=== PATIENT | male | born 1930 | race Caucasian/White ===

== ENCOUNTER 2016-10-19 11:29 | Inpatient (IN) | payer OTHER, MEDICARE ==
[2016-10-19] MEDS ORDERED: DILTIAZEM 25 MG/5 ML VIAL IVP ONE ×5 (11:32→12:27)
--- NOTE | 2016-10-19 11:39 | EDPHY ---
HPI/HX/ROS/PE/MDM Narrative: CHIEF COMPLAINT: Tachycardia, hypotension HPI: The patient is an 87 y/o male arriving emergently via EMS with rapid heart rate, hypotension, and dizziness onset this morning. EMS found him in the lobby of [facility] complaining of dizziness with a heart rate of 190 and BP of 82/40. He reports he had a dose of chemotherapy and prednisone this morning for active prostate cancer. He denies associated chest pain, dyspnea, vomiting, fever, recent illness, or recent trauma. He has no known history of atrial fibrillation. EMS administered 12mg Adenosine in the field without resolution of rhythm. REVIEW OF SYSTEMS: Aside from elements discussed in the HPI, a comprehensive 10-point review of systems was reviewed and is negative. PMH: CAD, CABG, prostate cancer, GERD, hyperlipidemia Prior medical records reviewed including admission for hydronephrosis on . SOCIAL HISTORY: Lives at [facility] PHYSICAL EXAM: General:Patient is alert, sitting up, talking, in no acute distress. BP 70/50, HR 180. ENT:Eyes are normal to inspection. ENT inspection normal. Neck: Normal inspection. Full range of motion. Respiratory:No respiratory distress. Breath sounds normal bilaterally. Cardiovascular: Irregular tachycardic rate and rhythm. Strong peripheral pulses. Normal cap refill. Strong radial pulses. Abdomen:The abdomen is nontender to palpation. There are no peritoneal signs. There are normal bowel sounds. Back: Normal to inspection. No tenderness to palpation. Skin: Normal color. No rash. Warm and dry. Extremities: Normal appearance. Full range of motion. Right arm PICC line in place. Neuro: Oriented x3. Normal motor function. Normal sensory function. ED Course: 1129: Met EMS upon arrival and took report. Patient immediately placed on monitor with defib pads. EKG ordered. Initial HR 180, automatic BP 71/61. He continues to feel weak and dizzy without chest pain, but overall is well- appearing, sitting up, and talking without issue. 1135: 10mg IV Diltazem administered. Rate has slowed to 130 and is clearly irregular. 1136: Manual BP 90/40. The 12 lead EKG was interpreted by myself. Rapid atrial fibrillation rate 170. See hard copy and/or "tracemaster" electronic copy for interpretation. 1138: Rate increased to 160-170. Additional 10mg IV Diltazem administered. Plan for Diltazem drip. Chest x-ray and cardiac labs ordered. 1146: Manual BP is 90/50. 1156: HR 180. Waiting on Diltazem drip to arrive from pharmacy. Additional 10mg IV Diltazem administered. 1245: Patient converted to sinus rhythm rate 65. Repeat EKG ordered. The 12 lead EKG was interpreted by myself. See hard copy and/or "tracemaster" electronic copy for interpretation. 1300: Patient's BP has remained low even while in sinus rhythm. We will discontinue the Diltazem drip at this time. He is still mentating well without new complaints. 1302: Spoke with hospitalist service. Dr. Boyd accepts admission. MDM: This patient presents in rapid atrial fibrillation. His automatic BP is quite low, but he has a strong radial pulse, is sitting up in bed mentating. We gave him a trial of 10mg Diltiazem which resulted in approximately 30-40bpm reduction in HR with corresponding increase in BP. I do not think the patient requires electrical cardioversion at this time - given his PICC line and history of CA, he is at relatively high risk for atrial thrombus, so I would like to avoid emergent cardioversion if possible. We will start patient on Diltiazem gtt and continue to monitor. I personally spent a total of 65 minutes of critical care time in obtaining history, performing a physical exam, bedside monitoring of interventions, collecting and interpreting tests and discussion with consultants but not including time spent performing procedures. This time was exclusive of any involvement by Physician Employee Representative. Organ system(s) at risk include: Cardiovascular. - Data Points Laboratory Results: Laboratory Results 10/19/16 11:48 10/19/16 11:48 10/19/16 10/19/16 11:48 11:48 WBC 14.85 10^3/uL H 10^3/uL (3.80-9.50) RBC 3.24 10^6/uL L 10^6/uL (4.40-6.38) Hgb 10.1 g/dL L g/dL (13.7-17.5) Hct 30.0 % L % (40.0-51.0) MCV 92.6 fL fL (81.5-99.8) MCH 31.2 pg pg (27.9-34.1) MCHC 33.7 g/dL g/dL (32.4-36.7) RDW 16.0 % H % (11.5-15.2) Plt Count 187 10^3/uL 10^3/uL (150-400) MPV 9.3 fL fL (8.7-11.7) Neut % (Auto) Not Reported Lymph % (Auto) Not Reported [place] % (Auto) Not Reported Eos % (Auto) Not Reported Baso % (Auto) Not Reported Nucleat RBC Rel Count 0.0 % % (0.0-0.2) Absolute Neuts (auto) Not Reported Absolute Lymphs (auto) Not Reported Absolute Monos (auto) Not Reported Absolute Eos (auto) Not Reported Absolute Basos (auto) Not Reported Absolute Nucleated RBC 0.00 10^3/uL 10^3/uL (0-0.01) Immature Gran % Not Reported Seg Neutrophils % 84 % % Band Neutrophils % 7 % % Lymphocytes % 8 % % Myelocytes % 1 % % Immature Gran # Not Reported Absolute Seg Neuts 12.47 10^/uL H 10^/uL (1.70-6.50) Absolute Band Neuts 1.04 10^3/uL H 10^3/uL (0.00-0.70) Absolute Lymphocytes 1.19 10^3/uL 10^3/uL (1.00-3.00) Absolute Myelocytes 0.15 10^3/mL H 10^3/mL (0.00-0.00) Platelet Estimate ADEQUATE (ADEQ) Polychromasia 1+ H Acanthocytes (Spur) 1+ H Smear Review By Pending Sodium 132 mEq/L L mEq/L (134-144) Potassium 4.0 mEq/L mEq/L (3.5-5.2) Chloride 103 mEq/L mEq/L (97-110) Carbon Dioxide 22 mEq/l mEq/l (22-31) Anion Gap 7 mEq/L L mEq/L (8-16) BUN 30 mg/dL H mg/dL (7-23) Creatinine 1.5 mg/dL H mg/dL (0.7-1.3) Estimated GFR 44 Glucose 171 mg/dL H mg/dL (70-100) Calcium 7.9 mg/dL L mg/dL (8.5-10.4) Troponin I 0.038 ng/mL H ng/mL (0-0.034) TSH 2.170 uIU/mL uIU/mL (0.465-4.680) Medications Given: Discontinued Medications Diltiazem HCl (Cardizem 25 Mg/5 Ml Vial) 20 mg IVP EDNOW ONE Stop: 10/19/16 11:42 Last Admin: 10/19/16 11:35 Dose: 10 mg Diltiazem HCl (Cardizem 25 Mg/5 Ml Vial) 10 mg IVP EDNOW ONE Stop: 10/19/16 11:42 Last Admin: 10/19/16 11:40 Dose: 10 mg Diltiazem HCl (Cardizem 25 Mg/5 Ml Vial) 10 mg IVP EDNOW ONE Stop: 10/19/16 11:42 Last Admin: 10/19/16 11:46 Dose: Not Given Diltiazem HCl (Cardizem 25 Mg/5 Ml Vial) 5 mg IVP EDNOW ONE Stop: 10/19/16 12:01 Last Admin: 10/19/16 12:27 Dose: Not Given Diltiazem HCl (Cardizem 25 Mg/5 Ml Vial) 10 mg IVP EDNOW ONE Stop: 10/19/16 12:28 Last Admin: 10/19/16 12:05 Dose: 10 mg Diltiazem HCl 125 mg/ Dextrose 125 mls @ 0 mls/hr IV EDNOW ONE; As Directed PRN Reason: Protocol Stop: 10/19/16 11:42 Last Admin: 10/19/16 12:06 Dose: 125 mls Sodium Chloride (Ns) 1,000 mls @ 0 mls/hr IV ONCE ONE PRN Reason: Wide Open Stop: 10/19/16 11:42 Last Admin: 10/19/16 11:44 Dose: 1,000 mls General Initial Vital Signs: Initial Vital Signs Temperature (C) 36.6 C 10/19/16 11:36 Heart Rate 190 H 10/19/16 11:36 Respiratory Rate 20 10/19/16 11:36 Blood Pressure 90/40 L 10/19/16 11:36 O2 Sat (%) 97 10/19/16 11:36 O2 Delivery Mode Room Air O2 (L/minute) 2 Allergies/Adverse Reactions: meperidine HCl [From Demerol] Allergy (Verified 12/02/15 17:36) Home Medications: Medication Instructions Recorded Aspirin [Aspirin 81mg (*)] 81 mg PO DAILY 10/19/16 Chemo Regimen 1 ea .ROUTE AD 10/19/16 Fluticasone Nasal [Flonase Nasal 1 sprays NASAL HS 10/19/16 Panacea (RX)] Omeprazole [Prilosec 20 mg] 20 mg PO DAILY 10/19/16 Rosuvastatin Calcium [Crestor 10mg 10 mg PO DAILY 10/19/16 (RX)] predniSONE 5 mg PO DAILY 10/19/16 Departure - Departure Disposition: [facility] Inpatient Acute Clinical Impression: Rapid atrial fibrillation Hypotension Qualifiers: Hypotension type: other hypotension type Qualified Code(s): I95.89 - Other hypotension Condition: Fair Report Scribed for: Charly [employer] Report Scribed by: Moraima Artis Date of Report: 10/19/16 Time of Report: 11:39 Physician Review and Approval Statement: Portions of this note were transcribed by an ED scribe. I personally performed the history, physical exam, and medical decision making; and confirm the accuracy of the information in the transcribed note.
--- NOTE | 2016-10-19 11:40 | CPEKG ---
Heart Rate: 165 RR Interval: 364 QRSD Interval: 82 QT Interval: 288 QTC Interval: 477 QRS Conway: 62 T Wave [place]: 244 EKG Severity - ABNORMAL ECG - EKG Impression: ATRIAL FIBRILLATION WITH RAPID V-RATE -- New since April 07, 2015 EKG Impression: REPOLARIZATION ABNORMALITY, PROB RATE RELATED EKG Impression: Agree with above Electronically Signed By: Johnson Fischer 22-Oct-2016 18:26:36
[2016-10-19] MEDS ORDERED: DILTIAZEM 125 MG in D5W 125 ML IV ONE (11:41)
[2016-10-19] MEDS ORDERED: NS 1,000 ML IV ONE (11:41)
[2016-10-19 11:56] LABS: ADD DIFF? YES; ADD MORPH? NO; ADD SCAN? NO; ATYPICAL LYMPHOCYTE FLAG 0 (0-99); FRAGMENT RBC FLAG 0 (0-99); HEMOGLOBIN 10.1 g/dL (13.7-17.5); LEFT SHIFT FLG 20 (0-99); LIPEMIA HEMOLYSIS FLAG 80 (0-99); MEAN CELL HEMOGLOBIN 31.2 pg (27.9-34.1); MEAN CELL HEMOGLOBIN CONCENTR. 33.7 g/dL (32.4-36.7); MEAN CELL VOLUME 92.6 fL (81.5-99.8); MEAN PLATELET VOLUME 9.3 fL (8.7-11.7); PLATELET CLUMPS FLAG 0 (0-99); PLATELET COUNT 187 10^3/uL (150-400); RED BLOOD CELL COUNT 3.24 10^6/uL (4.40-6.38)
[2016-10-19] MEDS: DILTIAZEM 25 MG/5 ML VIAL IVP ONE ×2 (12:00→12:27)
[2016-10-19 12:15] LABS: ANION GAP 7 mEq/L (8-16); CALCIUM 7.9 mg/dL (8.5-10.4); CARBON DIOXIDE 22 mEq/l (22-31); CHLORIDE 103 mEq/L (97-110); CREATININE 1.5 mg/dL (0.7-1.3); GLOMERULAR FILTRATION RATE 44; GLUCOSE 171 mg/dL (70-100); SODIUM 132 mEq/L (134-144)
[2016-10-19 12:26] LABS: TROPONIN I 0.038 ng/mL (0-0.034)
[2016-10-19 12:59] LABS: ACANTHOCYTES 1+; PLATELET ESTIMATE ADEQUATE (ADEQ); POLYCHROMASIA 1+
--- NOTE | 2016-10-19 13:40 | PDGENHP ---
History and Physical - Chief Complaint dizziness - History of Present Illness This is an 86-year-old male undergoing chemotherapy for prostate cancer under the care of Dr. Chuck Phelan who took a dose of prednisone this morning before breakfast. Immediately after taking the prednisone he felt disease and started having palpitations. He denies any syncope but felt like he was going to pass out. He denies having any chest pain. Denies any history of any arrhythmias or having episodes like this in the past. He had been getting dexamethasone with his chemotherapy which he gets on Mondays but the dexamethasone was stopped due to dizziness. Per EMS report he was initially found to have a heart rate of 190 beats per minute and a blood pressure of 82/40. He was given 12 mg of adenosine in the field without resolution of his symptoms. in the emergency department he received 210 mg boluses of IV diltiazem. They were going to start a diltiazem drip however this was held after he was noted to have persistent hypotension. History Information - Allergies/Home Medication List Allergies/Adverse Reactions: meperidine HCl [From Demerol] Allergy (Verified 12/02/15 17:36) Home Medications: Aspirin [Aspirin 81mg (*)] 81 mg PO DAILY 10/19/16 [Last Taken Unknown] Chemo Regimen 1 ea .ROUTE AD 10/19/16 [Last Taken 10/14/16] Fluticasone Nasal [Flonase Nasal [place] (RX)] 1 sprays NASAL HS 10/19/16 [Last Taken Unknown] Omeprazole [Prilosec 20 mg] 20 mg PO DAILY 10/19/16 [Last Taken Unknown] Rosuvastatin Calcium [Crestor 10mg (RX)] 10 mg PO DAILY 10/19/16 [Last Taken Unknown] predniSONE 5 mg PO DAILY 10/19/16 [Last Taken Unknown] I have personally reviewed and updated: family history, medical history, social history, surgical history Past Medical History: Prostate cancer - Past Medical History asthma, coronary artery disease - Surgical History Reports: coronary bypass surgery ( 2 vessels done in the ; radical prostatectomy) - Family History Additional family history: for prostate cancer and coronary artery disease - Social History Smoking Status: Never smoked Alcohol Use: Occasionally Drug Use: None Review of Systems ROS: 10pt was reviewed & negative except for what was stated in HPI & below Physical Exam Temp Pulse Resp BP Pulse Ox 36.6 C 88 16 108/48 L 99 03/25/17 11:36 10/19/16 12:57 10/19/16 12:57 10/19/16 12:57 10/19/16 12:57 Constitutional: no apparent distress, appears nourished, not in pain Eyes: PERRL, anicteric sclera, EOMI Ears, Nose, Mouth, Throat: dry mucous membranes Cardiovascular: no murmur, rub, or gallop, irregularly irregular, No JVD, No edema Respiratory: no respiratory distress, no rales or rhonchi, clear to auscultation , No rhonchi Gastrointestinal: normoactive bowel sounds, soft, non-tender abdomen, no palpable masses, No guarding, No rebound Genitourinary: no bladder fullness, no bladder tenderness Skin: warm, normal color, no rashes or abrasions, no fluctuance, no induration, other ( Poor turgor), No mottled Musculoskeletal: full muscle strength, no muscle tenderness, normal joint ROM, no joint effusions Neurologic: AAOx3, CN II-XII Intact, No facial droop Psychiatric: interacting appropriately, not anxious, not encephalopathic, thought process linear Lab Data & Imaging Review 10/19/16 11:48 10/19/16 11:48 WBC 14.85 10^3/uL (3.80-9.50) H 10/19/16 11:48 RBC 3.24 10^6/uL (4.40-6.38) L 10/19/16 11:48 Hgb 10.1 g/dL (13.7-17.5) L 10/19/16 11:48 Hct 30.0 % (40.0-51.0) L 10/19/16 11:48 MCV 92.6 fL (81.5-99.8) 10/19/16 11:48 MCH 31.2 pg (27.9-34.1) 10/19/16 11:48 MCHC 33.7 g/dL (32.4-36.7) 10/19/16 11:48 RDW 16.0 % (11.5-15.2) H 10/19/16 11:48 Plt Count 187 10^3/uL (150-400) 10/19/16 11:48 MPV 9.3 fL (8.7-11.7) 10/19/16 11:48 Neut % (Auto) Not Reported 10/19/16 11:48 Lymph % (Auto) Not Reported 10/19/16 11:48 [place] % (Auto) Not Reported 10/19/16 11:48 Eos % (Auto) Not Reported 10/19/16 11:48 Baso % (Auto) Not Reported 10/19/16 11:48 Nucleat RBC Rel Count 0.0 % (0.0-0.2) 10/19/16 11:48 Absolute Neuts (auto) Not Reported 10/19/16 11:48 Absolute Lymphs (auto) Not Reported 10/19/16 11:48 Absolute Monos (auto) Not Reported 10/19/16 11:48 Absolute Eos (auto) Not Reported 10/19/16 11:48 Absolute Basos (auto) Not Reported 10/19/16 11:48 Absolute Nucleated RBC 0.00 10^3/uL (0-0.01) 10/19/16 11:48 Immature Gran % Not Reported 10/19/16 11:48 Seg Neutrophils % 84 % 10/19/16 11:48 Band Neutrophils % 7 % 10/19/16 11:48 Lymphocytes % 8 % 10/19/16 11:48 Myelocytes % 1 % 10/19/16 11:48 Immature Gran # Not Reported 10/19/16 11:48 Absolute Seg Neuts 12.47 10^/uL (1.70-6.50) H 10/19/16 11:48 Absolute Band Neuts 1.04 10^3/uL (0.00-0.70) H 10/19/16 11:48 Absolute Lymphocytes 1.19 10^3/uL (1.00-3.00) 10/19/16 11:48 Absolute Myelocytes 0.15 10^3/mL (0.00-0.00) H 10/19/16 11:48 Platelet Estimate ADEQUATE (ADEQ) 10/19/16 11:48 Polychromasia 1+ H 10/19/16 11:48 Acanthocytes (Spur) 1+ H 10/19/16 11:48 Sodium 132 mEq/L (134-144) L 10/19/16 11:48 Potassium 4.0 mEq/L (3.5-5.2) 10/19/16 11:48 Chloride 103 mEq/L (97-110) 10/19/16 11:48 Carbon Dioxide 22 mEq/l (22-31) 10/19/16 11:48 Anion Gap 7 mEq/L (8-16) L 10/19/16 11:48 BUN 30 mg/dL (7-23) H 10/19/16 11:48 Creatinine 1.5 mg/dL (0.7-1.3) H 10/19/16 11:48 Estimated GFR 44 10/19/16 11:48 Glucose 171 mg/dL (70-100) H 10/19/16 11:48 Calcium 7.9 mg/dL (8.5-10.4) L 10/19/16 11:48 Troponin I 0.038 ng/mL (0-0.034) H 10/19/16 11:48 TSH 2.170 uIU/mL (0.465-4.680) 10/19/16 11:48 Visualized and Interpreted Chest x-ray results: Yes Chest X-Ray results: no infiltrate, normal Visualized and Interpreted EKG results: Yes EKG Interpretation: Positive for: ST depression ( in the anterior lateral leads) . Negative for: ST elevation Assessment & Plan Assessment: This is an 86-year-old male currently undergoing treatment for prostate cancer presenting with: #Atrial fibrillation with rapid ventricular response possibly attributed to prednisone use # hypotension # indeterminate troponin suspect demand ischemia in the setting of rapid atrial fibrillation # mild hyponatremia possibly due to hypovolemia # stable stage 3 chronic kidney disease with creatinine of 1.5 plan: - Place in observation - IV fluid bolus with normal saline - close blood pressure monitoring - consider resuming diltiazem drip if rate becomes uncontrolled - cycle troponins - echocardiogram to evaluate for cardiac thrombus - therapeutic Lovenox - check TSH - cardiology consultation - I will alert the patient's treating oncologist Dr. Chuck Phelan this patient has been hospitalized
[2016-10-19] MEDS ORDERED: NS 500 ML IV ONE ×2 (13:55→16:40)
[2016-10-19 14:57] LABS: MAGNESIUM 1.8 mg/dL (1.6-2.3)
[2016-10-19] MEDS: ENOXAPARIN 60 MG/0.6 ML SYR SC SCH (16:49)
[2016-10-19] MEDS: FLUTICASONE NASAL 120 SPRAYS/16 GM MDI EACHNARE SCH (22:16)
[2016-10-20] MEDS: ROSUVASTATIN CALCIUM 10 MG TAB PO SCH (08:53)
[2016-10-20] MEDS: PANTOPRAZOLE SODIUM 40 MG TAB PO SCH (08:53)
[2016-10-20] MEDS: ENOXAPARIN 60 MG/0.6 ML SYR SC SCH (08:53)
[2016-10-20] MEDS ORDERED: ASPIRIN 81 MG CHEWABLE TAB PO SCH (09:00)
[2016-10-20] MEDS ORDERED: NON-FORMULARY NEW DRUG (Omeprazole [Prilosec 20 Mg] 20 MG) PO SCH (09:00)
--- NOTE | 2016-10-20 09:30 | SOAPPROG ---
SOAP Progress Note Assessment/Plan: Assessment: 1. Castrate resistant prostate cancer; due for weekly taxotere tomorrow 2. PAF: In NSR. OK to go home from my perspective. He ascribes it to prednisone. OK to stop it from my perspective. 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 He has chronic anemia and fatigue. He came in with PAF. He is going home today. Objective: Vital Signs Temp Pulse Resp BP Pulse Ox 36.4 C 86 18 90/52 L 97 10/20/16 04:26 10/20/16 04:26 10/20/16 04:26 10/20/16 04:26 10/20/16 04:26 10/19/16 10/20/16 10/21/16 05:59 05:59 05:59 Intake Total 2500 Output Total 300 Balance 2200 Looks good Lungs clear CVS reg ICD10 Worksheet Patient Problems: Problems Problem Status Onset Chest pain Active CAD - Coronary arteriosclerosis Active Asthma Active GERD - Gastroesophageal reflux disease Active Rapid atrial fibrillation Acute Hypotension Acute
[2016-10-20] MEDS: AMIODARONE HCL 200 MG TAB PO SCH ×2 (11:58→21:47)
--- NOTE | 2016-10-20 12:04 | HOSPPROG ---
Hospitalist Progress Note Assessment/Plan: 86 y/o male with history of castration resistant prostate cancer on weekly Taxotere chemotherapy followed by Dr. Phelan presenting with #Afib with rvr now with improved rate but with persistent hypotension -repeat fluid bolus today -I discussed the case Gabriele who is recommending Amiodarone, but wishes to withhold anticoagulation for now #indeterminate troponin -outpt stress test #mild hyponatremia (stable) #St III CKD #Prostate CA -oncology consult reviewed. will hold prednisone dispo: will change to inpatient status given persistent hypotension. Plan to send home once at baseline Subjective: no chest pain. no palps. no dizziness Objective: Vital Signs Temp Pulse Resp BP Pulse Ox 36.3 C 93 22 H 93/49 L 92 10/20/16 11:48 10/20/16 11:48 10/20/16 11:48 10/20/16 11:48 10/20/16 11:48 10/19/16 10/20/16 10/21/16 05:59 05:59 05:59 Intake Total 2500 360 Output Total 300 Balance 2200 360 prelim echo results discussed with Dr. Suazo nml EF - Physical Exam Constitutional: no apparent distress, appears nourished, not in pain Cardiovascular: regular rate and rhythym, no murmur, rub, or gallop, No JVD, No edema Respiratory: no respiratory distress, no rales or rhonchi, clear to auscultation Gastrointestinal: normoactive bowel sounds, soft, non-tender abdomen, no palpable masses, No guarding, No rebound ICD10 Worksheet Patient Problems: Problems Problem Status Onset Chest pain Active CAD - Coronary arteriosclerosis Active Asthma Active GERD - Gastroesophageal reflux disease Active Rapid atrial fibrillation Acute Hypotension Acute
--- NOTE | 2016-10-20 12:08 | GCON ---
[f rep st] CONSULTATION CARDIOLOGY HISTORY OF PRESENT ILLNESS: This is an 86-year-old male undergoing chemotherapy for prostate cancer who used to be on dexamethasone; however it was bothering him quite a lot and decided to change it to prednisone. He took prednisone yesterday morning with his breakfast and immediately after taking prednisone, he felt lightheaded and dizzy and started having palpitation without any chest pain, shortness of breath. No syncope. He did feel presyncopal. He mentions that he had arrhythmia like this once before. He came to the hospital with a heart rate of 190 beats per minute, blood pressure of 82/40, was given adenosine in the field and then was given a bolus of IV Cardizem, but no drip was started because of persistent hypotension. Eventually he is converted into sinus rhythm spontaneously. The patient gets chemotherapy for his prostate cancer which is castrate resistant, and he has lymph node metastasis. It is unclear at this point in time, if he is willing to continue with chemotherapy. He has had known coronary artery disease and has had bypass surgery in the past. PAST MEDICAL HISTORY: 1. Coronary artery disease. 2. Prostate cancer castrate resistant. 3. Lymph node metastasis. 4. Syncope in the past related to dehydration. CURRENT HOME MEDICATION: Aspirin, chemo regimen, fluticasone, omeprazole, Crestor, and prednisone. ALLERGIES: meperidine. FAMILY HISTORY: Noncontributory. SOCIAL HISTORY: Non smoker. Occasional alcohol use. No drug abuse. REVIEW OF SYSTEMS: Other than above, negative. PHYSICAL EXAM: VITAL SIGNS: Blood pressure is 108/48, pulse of 88, respiratory rate 16. HEENT: Pupils equal, reacting to light accommodating. Anicteric sclerae. No lymphadenopathy, no thyromegaly. No JVD. CHEST: Good air entry bilaterally equal. No rales, rhonchi, or wheezing. CARDIAC: S1, S2 regular. No S3. No murmur. ABDOMEN: Soft, nontender. No guarding or rigidity. Bowel sounds present. EXTREMITIES: No edema. No rashes noted. PSYCHIATRY: Interacting appropriately, asking appropriate questions. LABORATORY DATA: Hemoglobin 10.1, platelet is 187, creatinine 1.5. IMPRESSION/PLAN: This is an 86-year-old male with prostate cancer status post lymph node metastasis, castrate resistant, hypotension, comes in with atrial fibrillation with rapid ventricular response, ST depression indicative of ischemia with elevated troponin. 1. Atrial fibrillation with rapid ventricular response. Considering how symptomatic the patient was, we need to prevent these episodes and hence I will start him on amiodarone 400 mg p.o. twice daily. The patient then has a CHADS score of 4 and hence, is at risk for stroke; however considering the lymph node metastasis and his dehydration related fall, it may be prudent to hold off on the blood thinners for now considering the risk of stroke. If he continues to have more episodes, we may reconsider it. 2. Increased troponin. We can address this as an outpatient in terms of evaluation of stress test. However considering the metastatic prostate cancer, he may be better off with medical management. 3. Echocardiogram. We will evaluate the patient's ejection fraction. The echo is pending at this point in time. 4. Hypotension. We will encourage increased fluid intake and hold off on any blood pressure lowering agents. Thank you for letting us participate in the patient's care, feel free to call us for questions. /[id number]/MODL MTDD
--- NOTE | 2016-10-20 12:16 | ECHO ---
[id number] + + [address] : : [place] [address] : : [phone] + Adult Echocardiographic Report + -------+ :Name: HENRY WADE SStudy Date: 10/20/2016 08:51 AM BP: 87/54 mmHg : : Hospital Admission Number: [id number] Locati on: 201: :: 1930 Gender: Male Height: 64 in : :Age: 86 yrs Race: WH Weight: 139 lb : :Reason For Study: new afib hypotension : : BSA: 1.7 meter s2 : :History: h/o of cabg : + -------+ MMode/2D Measurements \T\ Calculations IVSd: 1.3 cm LVIDd: 3.6 cm FS: 32.7 % Ao root diam: 2.8 cm LVPWd: 1.1 cm LVIDs: 2.5 cm EDV(Teich): 56.3 ml LA dimension: 3.6 cm ESV(Teich): 21.4 ml EF(Teich): 62.0 % LVOT diam: 2.2 cm LVOT area: 3.9 cm2 Normal Measurement Values: + + :LVIDd (3.5-5.7cm) IVSd (0.6-1.1cm) LVPWd (0.6-1.1cm) Aortic Root (2.0-3.7cm)Left Atrium (1.5-4.0cm): :LV Vol(d) (76-115ml) LV Vol(s) (29-48ml) Ejec Fraction (50-65%)PV Mars (0.6- 1.2m/s) TV Mars (0.4-1.0m/s) : :MV E Mars (0.8-1.0m/s)MV A Mars (0.3-1.0m/s)LVOT Mars (0.7-1.2m/s) Asc Ao Mars ( 0.9-1.8m/s) : + + Doppler Measurements \T\ Calculations MV E max mars: Ao V2 max: LV V1 max: PA V2 max: 60.2 cm/sec 146.6 cm/sec 169.1 cm/sec 109.9 cm/sec MV A max mars: Ao max PG: LV V1 max PG: PA max P.4 cm/sec 8.6 mmHg 11.4 mmHg 4.8 mmHg MV E/A: 0.70 MV dec time: FARHAT(V,D): 4.5 cm2 0.18 sec Left Ventricle The left ventricular cavity is small. There is mild concentric left ventricular hypertrophy. Ejection Fraction = 65-70%. Left ventricular systolic function is normal. No regional wall motion abnormalities noted. Right Ventricle The right ventricle is normal in size and function. Atria The left atrial size is normal. Right atrial size is normal. Mitral Valve The mitral valve is normal in structure and function. There is no mitral valve stenosis. There is trace mitral regurgitation. Tricuspid Valve The tricuspid valve is normal in structure and function. No tricuspid regurgitation. Aortic Valve The aortic valve is trileaflet. Mild Aortic Valve Calcification. There is no aortic stenosis. Trace to mild aortic regurgitation. Pulmonic Valve The pulmonic valve is not well visualized. Great Vessels The aortic root is normal size. Pericardium/Pleural There is no pericardial effusion. Conclusion A two-dimensional transthoracic echocardiogram with M-mode and Doppler was performed. The left ventricular cavity is small. There is mild concentric left ventricular hypertrophy. Ejection Fraction = 65-70%. Left ventricular systolic function is normal. There is trace mitral regurgitation. Trace to mild aortic regurgitation. Final Reading Physician: Lars Vernon signed on 10/20/2016 12:15 PM Ordering Physician: Andre Boyd Performed By: Ashlie Kingsley
[2016-10-20] MEDS ORDERED: NS 500 ML IV ONE (12:17)
--- NOTE | 2016-10-20 15:10 | CPEKG ---
Heart Rate: 87 RR Interval: 690 P-R Interval: 184 QRSD Interval: 82 QT Interval: 364 QTC Interval: 438 P [place]: 21 QRS [place]: 53 T Wave [place]: 46 EKG Severity - NORMAL ECG - EKG Impression: SINUS RHYTHM EKG Impression: Resolution of atrial fibrillation since October 19, 2016, 11:37 Electronically Signed By: Johnson Fischer 22-Oct-2016 18:24:38
[2016-10-20] MEDS: FLUTICASONE NASAL 120 SPRAYS/16 GM MDI EACHNARE SCH (21:50)
[2016-10-21 03:33] VITALS: TEMP 97.4
[2016-10-21] MEDS: AMIODARONE HCL 200 MG TAB PO SCH (07:47)
[2016-10-21] MEDS: ROSUVASTATIN CALCIUM 10 MG TAB PO SCH (07:47)
[2016-10-21] MEDS: PANTOPRAZOLE SODIUM 40 MG TAB PO SCH (07:47)
[2016-10-21] MEDS: ENOXAPARIN 60 MG/0.6 ML SYR SC SCH (07:47)
[2016-10-21 08:44] VITALS: BP 97/57; PULSE 91; RESP 21; O2SAT 94
--- NOTE | 2016-10-21 08:49 | CPEKG ---
Heart Rate: 87 RR Interval: 690 P-R Interval: 172 QRSD Interval: 86 QT Interval: 392 QTC Interval: 472 P [place]: 30 QRS [place]: 47 T Wave [place]: 20 EKG Severity - OTHERWISE NORMAL ECG - EKG Impression: SINUS RHYTHM EKG Impression: ATRIAL PREMATURE COMPLEX EKG Impression: No change from October 19, 2016 except for presence of PAC. Electronically Signed By: Johnson Fischer 21-Oct-2016 12:15:07
[2016-10-21] MEDS ORDERED: ASPIRIN EC 325 MG TAB PO SCH (09:00)
--- NOTE | 2016-10-21 09:51 | PDIAF ---
- Diagnosis Diagnosis: atrial fibrillation, dehydration, hypotension, metastatic prostate cancer Code Status: Full Code - Medication Management Discharge Medications: Medications to Continue on Transfer Aspirin [Aspirin 81mg (*)] 81 mg PO DAILY 10/19/16 [Last Taken Unknown] Chemo Regimen 1 ea .ROUTE AD 10/19/16 [Last Taken 10/14/16] Fluticasone Nasal [Flonase Nasal [place] (RX)] 1 sprays NASAL HS 10/19/16 [Last Taken Unknown] Omeprazole [Prilosec 20 mg] 20 mg PO DAILY 10/19/16 [Last Taken Unknown] Rosuvastatin Calcium [Crestor 10mg (RX)] 10 mg PO DAILY 10/19/16 [Last Taken Unknown] predniSONE 5 mg PO DAILY 10/19/16 [Last Taken Unknown] Discharge Medications: Refer to the Discharge Home Medication list for PRN reason. - Orders Services needed: Home Care, Registered Nurse, Physical Therapy Home Care Face to Face: I certify that this patient was under my care and that I had the required [id number] encounter meeting the encounter requirements on the discharge day. My findings support the fact that the patient is homebound as defined in CMS Chapter 7 Medicare Benefits Manual 30.1.1, The condition of the patient is such that there exists a normal inability to leave home and consequently, leaving home would require a considerable and taxing effort. Diet Recommendation: no restrictions on diet Diet Texture: Regular Texture Diet - Follow Up Care Current Providers and Referrals: Patient,NotPresent [Unknown] - As per Instructions
[2016-10-21 10:00] LABS: ANION GAP 8 mEq/L (8-16); CALCIUM 7.8 mg/dL (8.5-10.4); CARBON DIOXIDE 22 mEq/l (22-31); CHLORIDE 104 mEq/L (97-110); CREATININE 1.4 mg/dL (0.7-1.3); GLOMERULAR FILTRATION RATE 48; GLUCOSE 166 mg/dL (70-100); POTASSIUM 3.5 mEq/L (3.5-5.2); SODIUM 134 mEq/L (134-144)
[2016-10-21 10:04] LABS: ALANINE AMINOTRANSFERASE 24 IU/L (21-72); ALBUMIN 2.6 g/dL (3.5-5.0); ALKALINE PHOSPHATASE 48 IU/L (38-126); ANION GAP 7 mEq/L (8-16); ASPARTATE AMINOTRANSFERASE 25 IU/L (17-59); BILIRUBIN,TOTAL 0.6 mg/dL (0.1-1.4); CALCIUM 7.9 mg/dL (8.5-10.4); CARBON DIOXIDE 23 mEq/l (22-31); CHLORIDE 104 mEq/L (97-110); CREATININE 1.4 mg/dL (0.7-1.3); GLOMERULAR FILTRATION RATE 48; GLUCOSE 169 mg/dL (70-100); POTASSIUM 3.5 mEq/L (3.5-5.2); SODIUM 134 mEq/L (134-144)
[2016-10-21 10:10] LABS: TROPONIN I 0.188 ng/mL (0-0.034)
--- NOTE | 2016-10-21 10:40 | PDIAF ---
- Diagnosis Diagnosis: atrial fibrillation, dehydration, hypotension, metastatic prostate cancer Code Status: Full Code - Medication Management Discharge Medications: Medications to Continue on Transfer Aspirin [Aspirin 81mg (*)] 81 mg PO DAILY 10/19/16 [Last Taken Unknown] Chemo Regimen 1 ea .ROUTE AD 10/19/16 [Last Taken 10/14/16] Fluticasone Nasal [Flonase Nasal [place]] 1 sprays NASAL HS 10/19/16 [Last Taken Unknown] Omeprazole [Prilosec 20 mg] 20 mg PO DAILY 10/19/16 [Last Taken Unknown] Rosuvastatin Calcium [Crestor] 10 mg PO DAILY 10/19/16 [Last Taken Unknown] predniSONE 5 mg PO DAILY 10/19/16 [Last Taken Unknown] Amiodarone HCl 200 mg PO BID #60 tablet 10/21/16 [Last Taken Unknown] Discharge Medications: Refer to the Discharge Home Medication list for PRN reason. - Orders Services needed: Home Care, Registered Nurse, Physical Therapy Home Care Face to Face: I certify that this patient was under my care and that I had the required [id number] encounter meeting the encounter requirements on the discharge day. My findings support the fact that the patient is homebound as defined in CMS Chapter 7 Medicare Benefits Manual 30.1.1, The condition of the patient is such that there exists a normal inability to leave home and consequently, leaving home would require a considerable and taxing effort. Diet Recommendation: no restrictions on diet Diet Texture: Regular Texture Diet - Follow Up Care Current Providers and Referrals: Patient,NotPresent [Unknown] - As per Instructions
--- NOTE | 2016-10-21 13:12 | PDDCSUM ---
Discharge Summary Discharge Summary: DISCHARGE DIAGNOSES: -ATRIAL FIBRILLATION WITH RAPID VENTRICULAR RESPONSE -HYPOTENSION CONSULTANTS: -DR. NATALI SUAZO PROCEDURES: ECHOCARDIOGRAM HOSPITAL COURSE SUMMARY: This patient without history of cardiac arrhythmia came in with rapid palpitations, lightheadedness and fatigue. He was found to be in rapid atrial fibrillation. He was given diltiazem which did not bring about rate control though he did develop some hypotension. Diltiazem was was therefore stopped and he was started on amiodarone following which she converted to sinus rhythm. There is no heart failure. He did have some very minimal elevations of cardiac troponin without ischemic appearing EKG changes or chest pain. These troponin values are decreasing notably at this time. He is elected at this time continue amiodarone for this patient as he leaves the hospital. After review with Dr. Suazo it was elected to not recommend anticoagulation at this time unless he has more episodes of atrial fibrillation. MEDICATION CHANGES: - Addition of daily aspirin -Addition of amiodarone 200 mg twice daily with anticipation that this dose will be decreased in the next 2-4 weeks FOLLOW-UP PLAN: - with Dr. Natali Suazo at [facility] within 1-2 weeks The patient understands the discharge plan for follow-up and understands to return to clinic or hospital urgently if he develops concerning chest pains or trouble breathing or other urgent symptoms. Greater than 35 minutes bedside and care coordination time today
== END 2016-10-21 13:26 | disposition home health service (06) | DRG 309 ==
LOC: EDUNIT# → F2W 14:10 → OBSVTOIN 10-20 12:07
PROVIDERS: ADMIT Family Medicine; ATTEND Internal Medicine
DX: I48.0 Paroxysmal atrial fibrillation (principal); I95.89 Other hypotension; I24.8 Other forms of acute ischemic heart disease; C77.5 Secondary and unspecified malignant neoplasm of intrapelvic lymph nodes; Z85.46 Personal history of malignant neoplasm of prostate; Z90.79 Acquired absence of other genital organ(s); E87.1 Hypo-osmolality and hyponatremia; D63.8 Anemia in other chronic diseases classified elsewhere; N18.3 Chronic kidney disease, stage 3 (moderate); I25.10 Atherosclerotic heart disease of native coronary artery without angina pectoris; Z95.1 Presence of aortocoronary bypass graft; K21.9 Gastro-esophageal reflux disease without esophagitis; E78.5 Hyperlipidemia, unspecified
CPT/HCPCS: 96374; 97161-GP; 97165-GO; G0378; G8978-GP-CI; G8979-GP-CI; G8980-GP-CI; G8987-GO-CI; G8988-GO-CI; G8989-GO-CI; J1650

== ENCOUNTER → 2016-10-29 | Outpatient (CLI) | payer OTHER, MEDICARE | LOC: BHFA 10:30 | PROVIDERS: ATTEND Internal Medicine Cardiovascular Disease | DX: I25.10 Atherosclerotic heart disease of native coronary artery without angina pectoris (principal); I48.91 Unspecified atrial fibrillation; R06.00 Dyspnea, unspecified ==

== ENCOUNTER 2017-01-23 09:41 | Day surgery (SDC) | payer OTHER, MEDICARE ==
--- NOTE | 2017-01-22 15:20 | GHP ---
[f rep st] PREOP HISTORY AND PHYSICAL ADMISSION DIAGNOSIS: Hydronephrosis. HISTORY OF PRESENT ILLNESS: This is a gentleman who has had hydronephrosis secondary to prostate cancer. He has a left ureteral stent and he is to undergo a replacement of that stent. Written and verbal consents were obtained. He was admitted as an outpatient for the above procedure. His prostate cancer had been followed by Dr. Phelan, and he was seen in the office and he needed to have his stent removed and changed. He is admitted for the above. PAST MEDICAL HISTORY: He had asthma, hematuria, elevated PSA with prostate cancer, hypercholesterolemia, and heart disease. PAST SURGICAL HISTORY: Heart bypass and prostate surgery. MEDICATIONS: Aspirin, Crestor, Flonase, Lupron, omeprazole, Patanase, trazodone , Zometa. ALLERGIES: Demerol. FAMILY HISTORY: Positive for heart disease and prostate cancer. SOCIAL HISTORY: Moderate alcohol consumption. He is . REVIEW OF SYSTEMS: Negative cardiac, respiratory, GI, and endocrine. PHYSICAL EXAM: VITAL SIGNS: Stable. CHEST: Clear. HEART: Regular rate and rhythm. ABDOMEN: Normal. No organomegaly, rebound, or guarding. LOWER EXTREMITIES: Normal. PLAN: At the present time, he is admitted for the stent change. /[id number]/MODL MTDD
--- NOTE | 2017-01-23 06:45 | PDHPUP ---
History & Physical Update H&P update statement: This history and physical update is based on an assessment of the patient which was completed after admission or registration (within 24 hours), but prior to the surgery/procedure. H&P update: H&P reviewed & patient examined, no change in patient's condition since H&P completed
[~2017-01-23 09:41] MED LIST: CLINDAMYCIN 900 MG/DEXTROSE 50 ML IV ONE
[2017-01-23] MEDS ORDERED: LR 1,000 ML IV ONE (10:17)
[2017-01-23 10:29] VITALS: O2SAT 93
[2017-01-23] MEDS ORDERED: LIDOCAINE 2% JELLY 20 ML (UROJECT) ONE (11:02)
[2017-01-23] MEDS ORDERED: IOPAMIDOL (ISOVUE-M 300) 15 ML VIAL ONE (11:02)
[2017-01-23] MEDS ORDERED: CLINDAMYCIN 900 MG/DEXTROSE 50 ML IV ONE (11:30)
[2017-01-23] MEDS ORDERED: MIDAZOLAM 2 MG/2 ML VIAL IVP ONE (11:41)
--- NOTE | 2017-01-23 11:41 | PDANEPAE ---
ANE History of Present Illness LEFT URETERAL STENT REPLACEMENT FOR HYDRONEPHROSIS ANE Past Medical History - Cardiovascular History Hx Hypertension: Yes Hx Arrhythmias: Yes Hx Chest Pain: No Hx Coronary Artery / Peripheral Vascular Disease: Yes Hx CHF / Valvular Disease: No Hx Palpitations: No Cardiovascular History Comment: CABG X 4. States had history of HTN but not the last 4 years due to diet/exercise - Pulmonary History Hx COPD: No Hx Asthma/Reactive Airway Disease: Yes Hx Recent Upper Respiratory Infection: No Hx Oxygen in Use at Home: Yes Hx Sleep Apnea: Yes Sleep Apnea Screening Result - Last Documented: Positive Pulmonary History Comment: SLEEP APNEA 3L AT NIGHT - Neurologic History Hx Cerebrovascular Accident: No Hx Seizures: No Hx Dementia: No - Endocrine History Hx Diabetes: No - Renal History Hx Renal Disorders: Yes Renal History Comment: hx of LEFT URETER OBSTRUCTION 10/12/15 with stent change with brooks. prostate cancer - Liver History Hx Hepatic Disorders: No - Neurological & Psychiatric Hx Hx Neurological and Psychiatric Disorders: No - Cancer History Hx Cancer: Yes Cancer History Comment: PROSTATE CANCER - Congenital Disorder History Hx Congenital Disorders: No - GI History Hx Gastrointestinal Disorders: Yes Gastrointestinal History Comment: GASTRIC REFLUX - Other Health History Other Health History: RIGHT KNEE INJECTIONS. wears bilateral hearing aides. glasses - Chronic Pain History Chronic Pain: No - Surgical History Prior Surgeries: 10/12/15 ureteral stent change with [facility]. CABG x4 1995. PROSTATECTOMY 1990 (CANCER) ANE Review of Systems - Exercise capacity Exercise capacity: >=4 METS ANE Patient History - Allergies Allergies/Adverse Reactions: meperidine HCl [From Demerol] Allergy (Verified 12/02/15 17:36) - Home Medications Home Medications: Aspirin [Aspirin 81mg (*)] 81 mg PO DAILY 10/19/16 [Last Taken 01/22/17 22:00] Chemo Regimen 1 ea .ROUTE AD 10/19/16 [Last Taken 11/23/16] Fluticasone Nasal [Flonase Nasal [place]] 1 sprays NASAL HS 10/19/16 [Last Taken 01/22/17 22:00] Omeprazole [Prilosec 20 mg] 20 mg PO DAILY 10/19/16 [Last Taken 01/22/17 07:00] Rosuvastatin Calcium [Crestor] 10 mg PO DAILY 10/19/16 [Last Taken 01/22/17 22: 00] predniSONE 5 mg PO DAILY 10/19/16 [Last Taken 12/25/16] - NPO status NPO Since - Liquids (Date): 01/22/17 NPO Since - Liquids (Time): 22:00 NPO Since - Solids (Date): 01/22/17 NPO Since - Solids (Time): 19:00 - Anes Hx Anes Hx: no prior problems - Smoking Hx Smoking Status: Never smoked - Family Anes Hx Family Hx Anesthesia Complications: NONE ANE Labs/Vital Signs - Vital Signs Blood Pressure: 106/73 Heart Rate: 64 Respiratory Rate: 15 O2 Sat (%): 93 Height: 160.02 cm Weight: 63.503 kg ANE Physical Exam - Airway Neck exam: FROM Mallampati Score: Class 1 Mouth exam: normal dental/mouth exam - Pulmonary Pulmonary: no respiratory distress - Cardiovascular Cardiovascular: regular rate and rhythym - ASA Status ASA Status: III ANE Anesthesia Plan Anesthesia Plan: general endotracheal anesthesia, GA w LMA
[2017-01-23] MEDS ORDERED: fentaNYL 100 MCG/2 ML INJ ONE (11:55)
--- NOTE | 2017-01-23 12:31 | POSTOPPROG ---
Post Op Note Date of Operation: 01/23/17 Surgeon: Lazaro Conklin Anesthesia: LMA Pre-op Diagnosis: prostate cancer and left hydronephrosis Post-op Diagnosis: same Procedure: stent change--dictated Inf/Abcess present in the surg proc area at time of surgery?: No EBL: Minimal Complications: none Drains: Other (stent)
[2017-01-23] MEDS ORDERED: DEXAMETHASONE 4 MG/ML VIAL IVP PRN (12:42)
[2017-01-23] MEDS ORDERED: fentaNYL 100 MCG/2 ML INJ IVP PRN (12:42)
[2017-01-23] MEDS ORDERED: HYDROmorphONE/DILAUDID 1 MG/ML SYR IVP PRN (12:42)
[2017-01-23] MEDS ORDERED: ONDANSETRON 4 MG/2 ML VIAL IVP PRN (12:42)
[2017-01-23] MEDS ORDERED: ALBUTEROL 3 ML DEYVIAL IH PRN (12:42)
[2017-01-23] MEDS ORDERED: ACETAMINOPHEN 500 MG TAB PO PRN (12:42)
[2017-01-23] MEDS ORDERED: OXYCODONE/APAP 5/325 TAB PO PRN (12:42)
[2017-01-23] MEDS ORDERED: HYDROCODONE/APAP 5/325 TAB PO PRN (12:42)
[2017-01-23] MEDS ORDERED: NALOXONE HCL 0.4 MG/ML INJ IVP PRN (12:42)
--- NOTE | 2017-01-23 12:42 | POSTANESTH ---
Post Anesthetic Evaluation Cardiovascular Status: Normal, Stable Respiratory Status: Normal, Stable Level of Consciousness/Mental Status: Can Participate in Eval Pain Control: Adequate, Prn Tx Ordered Nausea/Vomiting Control: Adequate, Prn Tx Ordered Complications Possibly Related to Anesthesia: None Noted
--- NOTE | 2017-01-23 13:05 | GOP ---
[f rep st] OPERATIVE REPORT DATE OF OPERATION: 01/23/2017 SURGEON: Lazaro Conklin MD PREOPERATIVE DIAGNOSIS: Prostate cancer with left hydronephrosis. POSTOPERATIVE DIAGNOSIS: Prostate cancer with left hydronephrosis. PROCEDURE PERFORMED: FINDINGS: DESCRIPTION OF PROCEDURE: This gentleman underwent general anesthesia, and after appropriate timeou t and being prepped and draped in normal sterile fashion, urethra was cannulated and the bladder was entered via the cystoscope transurethrally. I identified the stent, grasped it, brought it to the meatus and then passed a guidewire up the stent curled in the renal pelvis. I removed that stent an d replaced it with a 7 x 28-Bengali double-J stent which curled in the renal pelvis and curled in the bladder. Bladder was investigated there were no tumor or stones, and bladder was emptied. Uro-Jet was placed in the urethra. He tolerated the procedure well. He will be discharged home to have [facility] scheduled stent change in approximately 4 months. PROCEDURE: Removal left ureteral stent and placement of new stent. /[id number]/MODL
[2017-01-23 14:27] VITALS: TEMP 98.1
[2017-01-23 14:39] VITALS: RESP 13
[2017-01-23 15:37] VITALS: BP 105/78; PULSE 80
== END 2017-01-23 15:36 | disposition home or self-care (01) ==
LOC: FSGY 09:41
PROVIDERS: ATTEND Specialist
PROC: BT1F1ZZ Fluoroscopy of Left Kidney, Ureter and Bladder using Low Osmolar Contrast (ICD-10-PCS; principal; 2017-01-23 11:15)
PROC: 0T778DZ Dilation of Left Ureter with Intraluminal Device, Via Natural or Artificial Opening Endoscopic (ICD-10-PCS; principal; 2017-01-23 11:15)
DX: N13.30 Unspecified hydronephrosis (principal); C61 Malignant neoplasm of prostate; E78.00 Pure hypercholesterolemia, unspecified; J45.909 Unspecified asthma, uncomplicated
CPT/HCPCS: 52332; 76001; C1769; C2625; J2250; J3010; Q9967

== ENCOUNTER 2017-03-04 09:17 | Observation (INO) | payer OTHER, MEDICARE ==
--- NOTE | 2017-03-04 09:35 | EDPHY ---
H & P Stated Complaint: L groin pain where he has a stent. Time Seen by Provider: 03/04/17 09:24 HPI/ROS: CHIEF COMPLAINT: Left groin pain HISTORY OF PRESENT ILLNESS: This patient is an 86 year old male with history of prostate cancer status post radical prostatectomy arriving at the request of his oncologist, Dr. Phelan, for evaluation of left groin pain onset yesterday evening. He has a left ureteral stent stent placed, which was replaced at the end of December, by Dr. Conklin. Last night, he attended a alliance party and concert, and ate some spicy soup and ice cream. While at the concert, his back and groin began to hurt. Prior to this , he had been feeling "perfect". Last night he couldn't sleep due to pain. His discomfort is increased when lying down or sitting bent. He feels best in semi- fowlers position or while walking. He rates his pain at 5/10 severity. He has never had pain like this related to his cancer. He endorses decreased urine output today, and mildly upset stomach. He had soft bowel movements this morning. He denies chest pain, shortness of breath, fever, or other associated symptoms. REVIEW OF SYSTEMS: A ten point review of systems was performed and is negative with the exception of the items mentioned in the HPI. - Personal History Current Tetanus Diphtheria and Acellular Pertussis (TDAP): Yes Tetanus Vaccine Date: <10 years - Medical/Surgical History PMH: 1. History of CAD. Bypass in 1991. 2. Prostate cancer, hormone resistant. Status post radical prostatectomy 3. Hard of hearing Hx Asthma: Yes Hx Chronic Respiratory Disease: No Hx Diabetes: No Hx Cardiac Disease: Yes Hx Renal Disease: No Hx Cirrhosis: No Hx Alcoholism: No Hx HIV/AIDS: No Hx Splenectomy or Spleen Trauma: No Other PMH: prostate ca, CABG, ALGAACIQ - Social History Smoking Status: Never smoked Alcohol Use: Occasionally Drug Use: None Additional Social History: He resides at [facility]. He is . - Physical Exam Exam: General Appearance: Alert, no acute distress. Eyes: Pupils equal and round, no conjunctival injection, no discharge. ENT, Mouth: Mucous membranes are moist, no oropharyngeal erythema or edema. Neck: No lymphadenopathy, supple. Respiratory: Lungs are clear to auscultation; no wheezes, rales, or rhonchi. Cardiovascular: Regular rate and rhythm; no murmur, rub, or gallop. Gastrointestinal: Left-sided abdominal tenderness lateral to umbilicus. Left lower quadrant tenderness without guarding. Suprapubic and left groin tenderness. No palpable inguinal hernia. Well-healed midline vertical abdominal scar. Abdomen is soft, no masses or organomegaly, bowel sounds normal. Pulses: 2+ left femoral pulse. Skin: Warm and dry, no rashes, normal color. Back: Nontender to palpation over the thoracolumbar spine. No CVA tenderness. Extremities: No lower extremity edema, no calf tenderness or swelling. Neurological: Alert and oriented. Moving all four extremities easily and equally. Psychiatric: Normal affect. Constitutional: Initial Vital Signs Temperature (C) 37 C 03/04/17 09:19 Heart Rate 69 03/04/17 09:19 Respiratory Rate 18 03/04/17 09:19 Blood Pressure 130/79 H 03/04/17 09:19 O2 Sat (%) 96 03/04/17 09:19 O2 Delivery Mode Room Air Allergies/Adverse Reactions: meperidine HCl [From Demerol] Allergy (Verified 03/04/17 09:22) Home Medications: Medication Instructions Recorded Aspirin [Aspirin 81mg (*)] 81 mg PO DAILY 10/19/16 Fluticasone Nasal [Flonase Nasal 1 sprays NASAL HS 10/19/16 [place]] Omeprazole [Prilosec 20 mg] 20 mg PO DAILY 10/19/16 Rosuvastatin Calcium [Crestor] 10 mg PO HS 10/19/16 predniSONE 5 mg PO BID 10/19/16 Medical Decision Making - Diagnostics Imaging Results: Imaging Impressions Abdomen/Pelvis CT 03/04/17 10:53 Impression: 1. Enlarging retroperitoneal metastatic adenopathy encasing the aorta, bilateral psoas muscles, and left ureter currently measuring 10 x 8 x 10 cm. 2. Diffuse diverticulosis coli with mild constipation. 3. No bowel obstruction. 4. Degenerative lumbar spine with dextroscoliosis, but no definite destructive osseous lesions. 5. Atelectasis versus metastasis in the right middle lobe. Attention: This CT examination is specifically designed to evaluate patients who are clinically suspected of having acute obstructive uropathy. This examination does not use radiographic contrast, and as such, provides only a limited evaluation of the abdomen, pelvis and retroperitoneum. If there is further clinical suspicion for pathological conditions other than obstructive uropathy, a complete CT evaluation of the abdomen and pelvis utilizing intravenous, oral, and rectal contrast should be considered. Findings and recommendations discussed with Emergency Department physician, Dr. Terrie Hernandez at 1130 hours on March 04, 2017. Final report concurs with initial preliminary interpretation. ED Course/Re-evaluation: Initial concern was for ureteral stent malfunction. Noncontrast CT of the abdomen was obtained to assess the stent and to assess for hydronephrosis. The patient has an elevated creatinine, although somewhat improved from his last creatinine level, and I wanted to avoid contrast. The CT scan is reported to me as showing an enlarging retroperitoneal mass (he was known to have a retroperitoneal mass) that encases the aorta and the ureter on the left and extends into the psoas muscle. I suspect that his pain is secondary to tumor burden. He is being evaluated for radiation treatment. There is nothing in the history of physical that makes me suspect infection. There is some diverticulosis on the CT scan, no diverticulitis. No inguinal hernia on physical exam. 12:07 Dr. Lopez accepts admission. He will be admitted for IV hydration, pain control, and further evaluation as needed. Differential Diagnosis: I considered a differential diagnosis that includes but is not limited to ureteral stent malfunction, ureterolithiasis, hydronephrosis, urinary tract infection/pyelonephritis, musculoskeletal pain, and diverticulitis. - Data Points Laboratory Results: Laboratory Results 03/04/17 10:05 03/04/17 10:05 03/04/17 03/04/17 10:05 10:05 WBC 11.10 10^3/uL H 10^3/uL (3.80-9.50) RBC 3.80 10^6/uL L 10^6/uL (4.40-6.38) Hgb 11.3 g/dL L g/dL (13.7-17.5) Hct 34.4 % L % (40.0-51.0) MCV 90.5 fL fL (81.5-99.8) MCH 29.7 pg pg (27.9-34.1) MCHC 32.8 g/dL g/dL (32.4-36.7) RDW 14.5 % % (11.5-15.2) Plt Count 170 10^3/uL 10^3/uL (150-400) MPV 8.8 fL fL (8.7-11.7) Neut % (Auto) 74.7 % H % (39.3-74.2) Lymph % (Auto) 15.2 % % (15.0-45.0) [place] % (Auto) 8.7 % % (4.5-13.0) Eos % (Auto) 0.3 % L % (0.6-7.6) Baso % (Auto) 0.4 % % (0.3-1.7) Nucleat RBC Rel Count 0.0 % % (0.0-0.2) Absolute Neuts (auto) 8.29 10^3/uL H 10^3/uL (1.70-6.50) Absolute Lymphs (auto) 1.69 10^3/uL 10^3/uL (1.00-3.00) Absolute Monos (auto) 0.97 10^3/uL H 10^3/uL (0.30-0.80) Absolute Eos (auto) 0.03 10^3/uL 10^3/uL (0.03-0.40) Absolute Basos (auto) 0.04 10^3/uL 10^3/uL (0.02-0.10) Absolute Nucleated RBC 0.00 10^3/uL 10^3/uL (0-0.01) Immature Gran % 0.7 % % (0.0-1.1) Immature Gran # 0.08 10^3/uL 10^3/uL (0.00-0.10) Sodium 135 mEq/L mEq/L (134-144) Potassium 3.9 mEq/L mEq/L (3.5-5.2) Chloride 101 mEq/L mEq/L (97-110) Carbon Dioxide 23 mEq/l mEq/l (22-31) Anion Gap 11 mEq/L mEq/L (8-16) BUN 28 mg/dL H mg/dL (7-23) Creatinine 1.6 mg/dL H mg/dL (0.7-1.3) Estimated GFR 41 Glucose 115 mg/dL H mg/dL (70-100) Calcium 9.2 mg/dL mg/dL (8.5-10.4) Medications Given: Discontinued Medications Acetaminophen (Tylenol 160mg/5ml Oral Liquid) 650 mg PO EDNOW ONE Stop: 03/04/17 13:07 Last Admin: 03/04/17 13:25 Dose: Not Given Acetaminophen (Tylenol) 650 mg PO EDNOW ONE Stop: 03/04/17 13:14 Last Admin: 03/04/17 13:24 Dose: 650 mg Calcium Carbonate (Tums) 500 mg PO EDNOW ONE Stop: 03/04/17 13:08 Last Admin: 03/04/17 13:24 Dose: 500 mg Departure - Departure Disposition: [facility] Inpatient Acute Clinical Impression: Abdominal pain Qualifiers: Abdominal location: left lower quadrant Qualified Code(s): R10.32 - Left lower quadrant pain Condition: Good Report Scribed for: Terrie Hernandez Report Scribed by: Bia Jack Date of Report: 03/04/17 Time of Report: 10:59
[2017-03-04 10:19] LABS: % IMMATURE GRANULYOCYTES 0.7 % (0.0-1.1); ABSOLUTE IMMATURE GRANULOCYTES 0.08 10^3/uL (0.00-0.10); ADD DIFF? NO; ADD MORPH? NO; ADD SCAN? NO; ATYPICAL LYMPHOCYTE FLAG 10 (0-99); FRAGMENT RBC FLAG 0 (0-99); HEMATOCRIT 34.4 % (40.0-51.0); HEMOGLOBIN 11.3 g/dL (13.7-17.5); LEFT SHIFT FLG 10 (0-99); LIPEMIA HEMOLYSIS FLAG 80 (0-99); MEAN CELL HEMOGLOBIN 29.7 pg (27.9-34.1); MEAN CELL HEMOGLOBIN CONCENTR. 32.8 g/dL (32.4-36.7); MEAN CELL VOLUME 90.5 fL (81.5-99.8); MEAN PLATELET VOLUME 8.8 fL (8.7-11.7); PLATELET CLUMPS FLAG 0 (0-99); PLATELET COUNT 170 10^3/uL (150-400); RED CELL DISTRIBUTION WIDTH 14.5 % (11.5-15.2)
[2017-03-04 10:31] LABS: ANION GAP 11 mEq/L (8-16); CALCIUM 9.2 mg/dL (8.5-10.4); CARBON DIOXIDE 23 mEq/l (22-31); CHLORIDE 101 mEq/L (97-110); CREATININE 1.6 mg/dL (0.7-1.3); GLOMERULAR FILTRATION RATE 41; GLUCOSE 115 mg/dL (70-100); POTASSIUM 3.9 mEq/L (3.5-5.2); SODIUM 135 mEq/L (134-144)
[2017-03-04] MEDS ORDERED: ONDANSETRON DISINTEGRATING 4 MG TAB PO PRN (12:23)
[2017-03-04] MEDS ORDERED: ONDANSETRON 4 MG/2 ML VIAL IVP PRN (12:23)
[2017-03-04] MEDS ORDERED: CALCIUM CARBONATE 500 MG CHEWABLE TAB PO PRN (12:58)
[2017-03-04] MEDS ORDERED: ACETAMINOPHEN 160 MG/5 ML UDCUP PO ONE (13:06)
[2017-03-04] MEDS ORDERED: CALCIUM CARBONATE 500 MG CHEWABLE TAB PO ONE (13:07)
[2017-03-04] MEDS ORDERED: ACETAMINOPHEN 325 MG TAB PO ONE (13:13)
[2017-03-04] MEDS ORDERED: NS 1,000 ML IV SCH (13:15)
[2017-03-04] MEDS ORDERED: oxyCODONE IR 5 MG TAB PO PRN (13:54)
--- NOTE | 2017-03-04 14:01 | GHP ---
[f rep st] HISTORY AND PHYSICAL DATE OF ADMISSION: 03/04/2017 CHIEF COMPLAINT: Left groin pain. HISTORY OF PRESENT ILLNESS: an 86-year-old male with history of prostate cancer diagnosed in 1990; Tc2 N0 M0. Presenting with left groin pain starting last night. He had spicy soup and an extra-large portion of ice cream for a libertarian without issue. Later that evening, on his way back to his room, he developed left lower back pain and along his left groin. He had difficulty urinating. Denies any fevers, chills, or sweats. c/o nausea now. No diarrhea or constipation. No dizziness or lightheadedness. No dysuria. Had a left ureteral stent placed by Dr. Conklin at the end of December. REVIEW OF SYSTEMS: I completed a 10-point review of systems; negative except as noted in HPI. PAST MEDICAL HISTORY: 1. Prostate cancer, diagnosed in 1990, Tc N0 M0, status post radical prostatectomy, docetaxel, and leuprolide. He is being evaluated for radiation. 2. Hydronephrosis. 3. CKD. PAST SURGICAL HISTORY: CABG, prostate cancer. SOCIAL HISTORY: He is ; lives in [facility]. Drinks wine a couple times a week. No tobacco or illicit. FAMILY HISTORY: Brother with prostate cancer. Coronary artery disease in the family. MEDICATIONS: see med reconciliation PHYSICAL EXAMINATION: VITAL SIGNS: Temperature 37, blood pressure 130/79, heart rate 69, respirations 18, 96% on room air. GENERAL: Lying in bed in no acute distress. HEENT: PERRLA. EOMI. Oropharynx clear. CV: Regular rate and rhythm. No murmurs, gallops, or rubs. LUNGS: Clear to auscultation bilaterally. ABDOMEN: Soft, nontender, nondistended. GROIN: Suprapubic left groin pain with palpation. No rebound, guarding. No CVA tenderness. MUSCULOSKELETAL: He has 5/5 upper and lower extremity strength. NEUROLOGIC: 2 through 12 intact. PSYCH: Alert and oriented x3. LABORATORY DATA: WBC 11, hemoglobin 13, hematocrit 34, platelets 170. Sodium 135, potassium 3.9, chloride 101, carbon dioxide 23, anion gap 11, BUN 20, creatinine 1.6 baseline, glucose 115, calcium 9.2. Last PSA was 415 on 2016. IMAGING: Abdominal CT impression: Enlarging retroperitoneal metastatic adenopathy encasing the aorta, bilateral psoas muscle, and left ureter currently measuring 10 x 8 x 10 cm. Mild diverticulosis. ASSESSMENT/PLAN: 1. Acute left lower abdominal/groin pain. suspect secondary to tumor burden. CT without hydronephrosis or stones. The retroperitoneal mass is now 10 x 8 x 10 cm. He is being evaluated for radiation therapy by Oncology. We will admit for pain control and hydration. Check UA 2. Nausea. P.r.n. Tums and IV Zofran. 3. Prostate cancer. Significant retroperitoneal adenopathy. Followed by Dr. Phelan. We will continue steroids. He is being evaluated for radiation therapy. 4. Diet: Regular. 5. Deep vein thrombosis prophylaxis: Lovenox high risk given malignancy. DISPOSITION: Patient warrants observation admission for IV hydration, pain control. /[id number]/MODL MTDD
[2017-03-04] MEDS: ACETAMINOPHEN 325 MG TAB PO PRN ×2 (16:53→21:03)
[2017-03-04] MEDS: predniSONE 5 MG TAB PO SCH ×2 (16:54→21:03)
[2017-03-04] MEDS ORDERED: ROSUVASTATIN CALCIUM 10 MG TAB PO SCH (21:00)
[2017-03-04] MEDS ORDERED: FLUTICASONE NASAL 120 SPRAYS/16 GM MDI EACHNARE SCH (21:00)
[2017-03-04 21:38] VITALS: RESP 16
[2017-03-05 07:24] VITALS: PULSE 66
[2017-03-05] MEDS: predniSONE 5 MG TAB PO SCH (08:17)
--- NOTE | 2017-03-05 08:55 | HOSPPROG ---
Hospitalist Progress Note Assessment/Plan: #Abdominal/groin pain: likely due to tumor burden. Improved with low-dose oxy #Prostate cancer: FU with Dr. Phelan, XRT #Nausea: PRN Tums DC today Subjective: pain resolved Objective: Vital Signs Temp Pulse Resp BP Pulse Ox 37 C 66 16 110/74 95 03/05/17 07:20 03/05/17 07:20 03/05/17 07:20 03/05/17 07:20 03/05/17 07:20 03/04/17 03/05/17 03/06/17 05:59 05:59 05:59 Intake Total 650 Balance 650 - Physical Exam Constitutional: no apparent distress Eyes: PERRL Ears, Nose, Mouth, Throat: moist mucous membranes, hearing normal Cardiovascular: regular rate and rhythym, no murmur, rub, or gallop Respiratory: no respiratory distress, no rales or rhonchi Gastrointestinal: normoactive bowel sounds, soft, non-tender abdomen Genitourinary: no bladder fullness, no bladder tenderness Skin: warm Musculoskeletal: full muscle strength Neurologic: AAOx3 Psychiatric: interacting appropriately ICD10 Worksheet Patient Problems: Problems Problem Status Onset Asthma Active CAD - Coronary arteriosclerosis Active Chest pain Active GERD - Gastroesophageal reflux disease Active Abdominal pain Acute Hypotension Acute Rapid atrial fibrillation Acute
[2017-03-05] MEDS ORDERED: ENOXAPARIN 40 MG/0.4 ML SYR SC SCH (09:00)
[2017-03-05] MEDS ORDERED: ASPIRIN 81 MG CHEWABLE TAB PO SCH (09:00)
[2017-03-05] MEDS ORDERED: PANTOPRAZOLE SODIUM 40 MG TAB PO SCH ×2 (09:00)
[2017-03-05] MEDS ORDERED: NON-FORMULARY NEW DRUG (Omeprazole [Prilosec 20 Mg] 20 MG) PO SCH (09:00)
[2017-03-05 11:31] VITALS: BP 101/59; TEMP 98; O2SAT 94
--- NOTE | 2017-03-05 12:21 | GCON ---
[f rep st] CONSULTATION INITIAL VISIT PRIMARY ONCOLOGIST: Dr. Chuck Phelan REASON FOR VISIT: Prostate cancer. HISTORY OF PRESENT ILLNESS: Jsoe is an 86-year-old gentleman who was initially diagnosed with prostate cancer in April 1991 and underwent prostatectomy. In 2001, I believe he had a biochemical recurrence and was started on leuprolide. He has had previous docetaxel, abiraterone and enzalutamide. He was in the office yesterday because he has a growing retropharyngeal node, and was supposed to undergo planning yesterday for palliative radiation to the node. While in Dr. Phelan's office yesterday, he was complaining severe pain in the left groin. He also reports it is in his back, but he just felt poorly all over, with some associated nausea. He was admitted overnight for pain control and a CT was obtained to see if there is any other explanation for the acute exacerbation of the pain. He was given, I believe, oxycodone yesterday and that really helped his pain. He was able to sleep last night, and he feels much better today. He has rescheduled his radiation appointment for Friday. He is hoping to go home this morning. PAST MEDICAL HISTORY: 1. Chronic illness is prostate cancer as described in HPI. 2. Hydronephrosis. 3. Chronic kidney disease. PAST SURGICAL HISTORY: Includes prostatectomy, and a CABG. SOCIAL HISTORY: He is , lives in [facility], has wine occasionally , does not smoke. FAMILY HISTORY: Significant for prostate cancer. ALLERGIES: Include meperidine. HOME MEDICATIONS: Included Crestor, omeprazole, Flonase, aspirin, 5 mg prednisone twice daily and low-dose oxycodone. REVIEW OF SYSTEMS: A 10-point review of systems performed, pertinent positives as in HPI, otherwise negative. PHYSICAL EXAM: VITAL SIGNS: He is afebrile, vital signs are stable. GENERAL: An elderly man in no distress. He is comfortable. LUNGS: Clear. CARDIAC: Regular. ABDOMEN: Soft. Nontender. I do not appreciate a mass. LABS: He has a mild anemia and his creatinine is 1.6, which is stable for him. CT scan showed enlarging retroperitoneal metastatic adenopathy encasing the aorta, bilateral psoas muscles, and left ureter, measuring 10 x 8 x 10 cm. He has had some associated constipation. IMPRESSION: 1. Metastatic prostate cancer with enlarging retroperitoneal mass. 2. Acute pain episode, now under good control. PLAN: Continue controlling pain with short acting low-dose narcotics as needed. He is to call if that is not controlling his pain. For floor and wall applier liquid, the plan is to undergo palliative radiation to the mass, and he has a followup appointment with Dr. Gotti on Friday. I agree with the hospitalist that there is no contraindication for going back to [facility] today, and he is to follow up with Dr. Phelan, I think scheduled for March 18, 2017. /[id number]/MODL MTDD
--- NOTE | 2017-03-05 14:51 | GDS ---
[f rep st] DISCHARGE SUMMARY DISCHARGE DIAGNOSES: 1. Acute abdominal/groin pain. 2. Prostate cancer. 3. History of hydronephrosis. 4. Chronic kidney disease. HISTORY OF PRESENT ILLNESS: An 86-year-old male with history of prostate cancer diagnosed in 1990 w ho presented with left groin pain. The night prior, he had spicy soup at dinner and an extra large portion of ice cream at a alliance party at [facility]. He tolerated this fine until later in [facility] when he developed lower back pain that radiated to his left groin. He also had difficulty urinat ing. He denies any fevers, chills, or sweats. Had some nausea at time of my interview. No diarrhe a or constipation. Of note, he had a left ureteral stent placed by Dr. Conklin at the end of December. A recent abdominal CT scan demonstrated enlarging retroperitoneal metastatic adenopathy encasing the aorta, bilateral psoas muscle, and left ureter. HOSPITAL COURSE BY PROBLEM: 1. Acute left lower abdominal/groin pain: Suspect this is secondary to tumor burden. CT did not d emonstrate hydronephrosis or stones. His underlying retroperitoneal mass has increased in size and is encasing the psoas muscles as well as the left ureter. Patient's pain is much improved on very l ow dose of oxycodone. We will discharge on 2.5 as needed. He is urinating well today. 2. Nausea: Suspect this is secondary to spicy meal and ice cream. This improved with Tums. 3. History of prostate cancer: His primary oncologist is Dr. Phelan, whom he will follow up with on 03/18, and he is to start radiation therapy. 4. Mild leukocytosis: This has been chronic for the last several months. He denies any infectious symptoms and has remained afebrile here. DISPOSITION: Patient is stable for discharge. NEW MEDICATIONS: Oxycodone 2.5 mg as needed. FOLLOWUP: 1. Dr. Phelan. 2. Radiation Oncology for initiation of treatment. /[id number]/MODL
[2017-03-06] MEDS ORDERED: ENOXAPARIN 30 MG/0.3 ML SYR SC SCH (09:00)
== END 2017-03-05 12:12 ==
LOC: INTOOBSV 12:08 → F1N 14:25
PROVIDERS: ADMIT Internal Medicine; ATTEND Internal Medicine
DX: G89.3 Neoplasm related pain (acute) (chronic) (principal); C78.6 Secondary malignant neoplasm of retroperitoneum and peritoneum; Z85.46 Personal history of malignant neoplasm of prostate; K57.30 Diverticulosis of large intestine without perforation or abscess without bleeding; N18.9 Chronic kidney disease, unspecified; Z95.1 Presence of aortocoronary bypass graft
CPT/HCPCS: 74176; 99285; G0378; J1650

== ENCOUNTER → 2017-03-09 | Outpatient (CLI) | payer OTHER, MEDICARE | LOC: FCPNEURO 23:23 | PROVIDERS: ATTEND Psychiatry & Neurology Sleep Medicine | DX: G47.33 Obstructive sleep apnea (adult) (pediatric) (principal); G47.61 Periodic limb movement disorder ==

== ENCOUNTER 2017-06-08 15:17 | Observation (INO) | payer OTHER, MEDICARE ==
--- NOTE | 2017-06-08 15:50 | CPEKG ---
Heart Rate: 76 RR Interval: 789 P-R Interval: 188 QRSD Interval: 86 QT Interval: 380 QTC Interval: 428 P [place]: 54 QRS [place]: 54 T Wave [place]: 15 EKG Severity - NORMAL ECG - EKG Impression: SINUS RHYTHM Electronically Signed By: Ben Jovel 09-Jun-2017 08:43:25
--- NOTE | 2017-06-08 15:59 | EDPHY ---
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 He was in the hospital around 1 year ago for atrial fibrillation. They did not shock him, but he was placed on amiodarone for 6 months. While visiting [place], he began to have heart palpitations. These symptoms lasted around an hour and they referred him to seeing a consultant. He is scheduled to see Dr. Vu, consultant, on Friday (tomorrow). His symptoms today lasted around 45 minutes; this was a associated with abdominal pain. He has also had congested sinuses and feels like he had a cold recently. In addition to his palpitations, he is having bilateral back pain and ankle swelling. Since his CABG, he has had high cholesterol. No fever, chills, sweats, chest pain, shortness of breath, vomiting, diarrhea, urinary complaints, headache, lightheadedness. REVIEW OF SYSTEMS: Aside from elements discussed in the HPI, a comprehensive 10-point review of systems was reviewed and is negative. PAST MEDICAL HISTORY: Atrial fibrillation (hospital admission in 2015), CABG ( 1992), CAD, prostate cancer, GERD, hypercholesteremia SOCIAL HISTORY: Friend at bedside, lives in [place], retired VITAL SIGNS: BP: 91/53, others reviewed by me as normal GENERAL: Well-developed, well-nourished, resting comfortably in no respiratory distress. HEENT: Atraumatic. Eyes: No icterus, no injection. Mouth: moist mucous membranes. No erythema or lesions. Neck: supple with no adenopathy. LUNGS: Clear to auscultation bilaterally, no wheezes, rhonchi or rales. CARDIAC: Regular rate and rhythm, no rubs, murmurs or gallops. ABDOMEN: Soft, nontender, nondistended, bowel sounds normal. BACK: No CVA tenderness. EXTREMITIES: No trauma. Trace peripheral edema. Range of motion is normal throughout. NEURO: Alert and oriented, grossly nonfocal. SKIN: Warm and dry, no rash. PSYCHIATRIC: Normal mentation, no agitation. Portions of this note were transcribed by a medical staff manager. I personally performed a history, physical exam, medical decision making, and confirmed accuracy of information the transcribed note. - Personal History Current Tetanus/Diphtheria Vaccine: Unsure Current Tetanus Diphtheria and Acellular Pertussis (TDAP): Unsure Tetanus Vaccine Date: <10 years - Medical/Surgical History Hx Asthma: Yes Hx Chronic Respiratory Disease: No Hx Diabetes: No Hx Cardiac Disease: Yes Hx Renal Disease: No Hx Cirrhosis: No Hx Alcoholism: No Hx HIV/AIDS: No Hx Splenectomy or Spleen Trauma: No Other PMH: prostate ca, [place] 1992[place], admission a [facility] 2015 - Social History Smoking Status: Never smoked Constitutional: Initial Vital Signs Temperature (C) 36.9 C 06/08/17 15:31 Heart Rate 80 06/08/17 15:31 Respiratory Rate 16 06/08/17 15:31 Blood Pressure 91/53 L 06/08/17 15:31 O2 Sat (%) 95 06/08/17 15:31 O2 Delivery Mode Room Air Allergies/Adverse Reactions: meperidine HCl [From Demerol] Allergy (Verified 03/04/17 09:22) Home Medications: Medication Instructions Recorded Aspirin [Aspirin 81mg (*)] 81 mg PO DAILY 10/19/16 Fluticasone Nasal [Flonase Nasal 1 sprays NASAL HS 10/19/16 [place]] Omeprazole [Prilosec 20 mg] 20 mg PO DAILY 10/19/16 Rosuvastatin Calcium [Crestor] 10 mg PO HS 10/19/16 Medical Decision Making - Diagnostics EKG Interpretation: 12-LEAD EKG: Please see the full report in [facility]. My interpretation: Normal sinus rhythm with a rate of 76 Imaging Results: Imaging Impressions Chest X-Ray 06/08/17 16:15 Impression: 1. Postoperative features following a prior CABG, with no evidence of congestive heart failure. 2. Mild hypoventilatory features with some bibasilar subsegmental atelectasis, right greater than left. Imaging: I viewed and interpreted images myself ED Course/Re-evaluation: The patient is an 87 y/o male presenting with intermittent atrial fibrillation for the past week. He was seen in a hospital in [place] 1 week ago for Afib, but his symptoms subsided in around an hour. Today his symptoms lasted around 45 minutes and he is not currently symptomatic. On exam he has trace peripheral edema. Due to his ongoing intermittent afib, he will most likely need to be admitted for observation. 1600: EKG interpreted as normal 1738: Consulted with hospitalist service, Dr. Butler accepts admission of this patient. 1814: Reassessed patient and discussed plan for admission. He is comfortable with this plan. - Data Points Laboratory Results: Laboratory Results 06/08/17 16:30 06/08/17 16:30 06/08/17 06/08/17 16:30 16:30 WBC 7.74 10^3/uL 10^3/uL (3.80-9.50) RBC 3.03 10^6/uL L 10^6/uL (4.40-6.38) Hgb 9.4 g/dL L g/dL (13.7-17.5) Hct 28.4 % L % (40.0-51.0) MCV 93.7 fL fL (81.5-99.8) MCH 31.0 pg pg (27.9-34.1) MCHC 33.1 g/dL g/dL (32.4-36.7) RDW 14.6 % % (11.5-15.2) Plt Count 224 10^3/uL 10^3/uL (150-400) MPV 9.0 fL fL (8.7-11.7) Neut % (Auto) 72.5 % % (39.3-74.2) Lymph % (Auto) 16.5 % % (15.0-45.0) [place] % (Auto) 9.0 % % (4.5-13.0) Eos % (Auto) 1.2 % % (0.6-7.6) Baso % (Auto) 0.4 % % (0.3-1.7) Nucleat RBC Rel Count 0.0 % % (0.0-0.2) Absolute Neuts (auto) 5.61 10^3/uL 10^3/uL (1.70-6.50) Absolute Lymphs (auto) 1.28 10^3/uL 10^3/uL (1.00-3.00) Absolute Monos (auto) 0.70 10^3/uL 10^3/uL (0.30-0.80) Absolute Eos (auto) 0.09 10^3/uL 10^3/uL (0.03-0.40) Absolute Basos (auto) 0.03 10^3/uL 10^3/uL (0.02-0.10) Absolute Nucleated RBC 0.00 10^3/uL 10^3/uL (0-0.01) Immature Gran % 0.4 % % (0.0-1.1) Immature Gran # 0.03 10^3/uL 10^3/uL (0.00-0.10) Sodium 140 mEq/L mEq/L (134-144) Potassium 3.9 mEq/L mEq/L (3.5-5.2) Chloride 101 mEq/L mEq/L (97-110) Carbon Dioxide 27 mEq/l mEq/l (22-31) Anion Gap 12 mEq/L mEq/L (8-16) BUN 30 mg/dL H mg/dL (7-23) Creatinine 2.0 mg/dL H mg/dL (0.7-1.3) Estimated GFR 32 Glucose 102 mg/dL H mg/dL (70-100) Calcium 9.5 mg/dL mg/dL (8.5-10.4) Total Bilirubin 0.3 mg/dL mg/dL (0.1-1.4) Conjugated Bilirubin 0.0 mg/dL mg/dL (0.0-0.5) Unconjugated Bilirubin 0.3 mg/dL mg/dL (0.0-1.1) AST 25 IU/L IU/L (17-59) ALT 31 IU/L IU/L (21-72) Alkaline Phosphatase 51 IU/L IU/L (38-126) Troponin I 0.026 ng/mL ng/mL (0.000-0.034) NT-Pro-B Natriuret Pep 1020 pg/mL H pg/mL (0-450) Total Protein 6.4 g/dL g/dL (6.3-8.2) Albumin 3.7 g/dL g/dL (3.5-5.0) Lipase 73 IU/L IU/L (23-300) Medications Given: Discontinued Medications Sodium Chloride (Ns) 500 mls @ 1,000 mls/hr IV EDNOW ONE PRN Reason: Protocol Stop: 06/08/17 16:43 Last Admin: 06/08/17 16:32 Dose: 500 mls Departure - Departure Disposition: [facility] Acute Clinical Impression: Atrial fibrillation Qualifiers: Atrial fibrillation type: unspecified Qualified Code(s): I48.91 - Unspecified atrial fibrillation Condition: Fair Referrals: Chuck Phelan MD [Primary Care Provider] - As per Instructions
[2017-06-08] MEDS ORDERED: NS 500 ML IV ONE ×2 (16:14→19:13)
[2017-06-08 16:49] LABS: % IMMATURE GRANULYOCYTES 0.4 % (0.0-1.1); ABSOLUTE IMMATURE GRANULOCYTES 0.03 10^3/uL (0.00-0.10); ADD DIFF? NO; ADD MORPH? NO; ADD SCAN? NO; ATYPICAL LYMPHOCYTE FLAG 10 (0-99); FRAGMENT RBC FLAG 0 (0-99); HEMATOCRIT 28.4 % (40.0-51.0); HEMOGLOBIN 9.4 g/dL (13.7-17.5); LEFT SHIFT FLG 0 (0-99); LIPEMIA HEMOLYSIS FLAG 80 (0-99); MEAN CELL HEMOGLOBIN CONCENTR. 33.1 g/dL (32.4-36.7); MEAN CELL VOLUME 93.7 fL (81.5-99.8); PLATELET CLUMPS FLAG 0 (0-99); PLATELET COUNT 224 10^3/uL (150-400); RED BLOOD CELL COUNT 3.03 10^6/uL (4.40-6.38); RED CELL DISTRIBUTION WIDTH 14.6 % (11.5-15.2)
[2017-06-08 17:03] LABS: ALANINE AMINOTRANSFERASE 31 IU/L (21-72); ALBUMIN 3.7 g/dL (3.5-5.0); ALKALINE PHOSPHATASE 51 IU/L (38-126); ANION GAP 12 mEq/L (8-16); ASPARTATE AMINOTRANSFERASE 25 IU/L (17-59); BILIRUBIN,TOTAL 0.3 mg/dL (0.1-1.4); BILIRUBIN-UNCONJUGATED 0.3 mg/dL (0.0-1.1); CALCIUM 9.5 mg/dL (8.5-10.4); CARBON DIOXIDE 27 mEq/l (22-31); CHLORIDE 101 mEq/L (97-110); GLOMERULAR FILTRATION RATE 32; GLUCOSE 102 mg/dL (70-100); POTASSIUM 3.9 mEq/L (3.5-5.2); SODIUM 140 mEq/L (134-144); TOTAL PROTEIN 6.4 g/dL (6.3-8.2)
[2017-06-08 17:13] LABS: TROPONIN I 0.026 ng/mL (0.000-0.034)
[2017-06-08] MEDS ORDERED: ONDANSETRON DISINTEGRATING 4 MG TAB PO PRN (19:13)
[2017-06-08] MEDS ORDERED: oxyCODONE IR 5 MG TAB PO PRN (19:13)
[2017-06-08] MEDS ORDERED: ONDANSETRON 4 MG/2 ML VIAL IVP PRN (19:13)
[2017-06-08] MEDS ORDERED: ACETAMINOPHEN 325 MG TAB PO PRN (19:13)
[2017-06-08] MEDS ORDERED: PROMETHAZINE HCL 25 MG/ML INJ IVP PRN (19:13)
--- NOTE | 2017-06-08 19:31 | PDGENHP ---
History and Physical - Chief Complaint palpitations - History of Present Illness 87 yo M with PMH of CAD, p afib and prostate cancer admitted with a run of palpitations at home. He notes he was able to check his HR with his home pulse oximeter and it was between 130-155. He had a similar episode last week while in [place] and was seen in the ER there for presumed bout of a fib. He denies any associated chest pain, near syncope or lightheadedness. He does note that he has had increased fatigue and poor po intake recently which he attributes to undergoing radiation and chemotherapy for his prostate cancer. He is currently sxs free and notes he has been since arrival in the ER. He has an appointment to see his beef cattle specialist Dr. Vu tomorrow, and [facility] is aware that he is here in ER and recommended overnight observation. He was previously on amiodarone for his paroxysmal a fib due to being very symptomatic with these bouts, but has been off of all a fib meds other than asa recently. History Information - Allergies/Home Medication List Allergies/Adverse Reactions: meperidine HCl [From Demerol] Allergy (Verified 03/04/17 09:22) Home Medications: Aspirin [Aspirin 81mg (*)] 81 mg PO DAILY 10/19/16 [Last Taken 06/08/17] Fluticasone Nasal [Flonase Nasal [place]] 1 sprays NASAL DAILY PRN 10/19/16 [Last Taken 03/03/17] Omeprazole [Prilosec 20 mg] 20 mg PO DAILY 10/19/16 [Last Taken 03/04/17] Rosuvastatin Calcium [Crestor] 10 mg PO DAILY 10/19/16 [Last Taken 06/08/17] I have personally reviewed and updated: family history, medical history, social history, surgical history Past Medical History: Prostate cancer - Past Medical History atrial fibrillation, asthma, coronary artery disease, cancer (prostate), GERD, hyperlipidemia Additional medical history: CKD with baseline creatinine 1.8-2. chronic anemia. ROB on cpap at home - Surgical History Reports: coronary bypass surgery ( 2 vessels done in the ; radical prostatectomy), cancer surgery (radical prostatectomy) - Family History Positive for: stroke (mother of cva) Additional family history: for prostate cancer and coronary artery disease - Social History Smoking Status: Never smoked Alcohol Use: Occasionally Drug Use: None Additional social history: , resides of [facility] Review of Systems Review of Systems: ROS: 10pt was reviewed & negative except for what was stated in HPI & below Physical Exam Physical Exam: Temp Pulse Resp BP Pulse Ox 36.6 C 66 16 101/61 95 06/08/17 19:19 06/08/17 19:19 06/08/17 19:19 06/08/17 19:19 06/08/17 19:19 Constitutional: no apparent distress, appears nourished Eyes: PERRL Ears, Nose, Mouth, Throat: moist mucous membranes, hearing normal Cardiovascular: regular rate and rhythym, no murmur, rub, or gallop, No edema Respiratory: no respiratory distress, no rales or rhonchi Gastrointestinal: normoactive bowel sounds, soft, non-tender abdomen Genitourinary: no bladder tenderness Skin: warm, normal color Musculoskeletal: full muscle strength Neurologic: AAOx3 Psychiatric: interacting appropriately, not anxious, not encephalopathic Lab Data & Imaging Review 06/08/17 16:30 06/08/17 16:30 WBC 7.74 10^3/uL (3.80-9.50) 06/08/17 16:30 RBC 3.03 10^6/uL (4.40-6.38) L 06/08/17 16:30 Hgb 9.4 g/dL (13.7-17.5) L 06/08/17 16:30 Hct 28.4 % (40.0-51.0) L 06/08/17 16:30 MCV 93.7 fL (81.5-99.8) 06/08/17 16:30 MCH 31.0 pg (27.9-34.1) 06/08/17 16:30 MCHC 33.1 g/dL (32.4-36.7) 06/08/17 16:30 RDW 14.6 % (11.5-15.2) 06/08/17 16:30 Plt Count 224 10^3/uL (150-400) 06/08/17 16:30 MPV 9.0 fL (8.7-11.7) 06/08/17 16:30 Neut % (Auto) 72.5 % (39.3-74.2) 06/08/17 16:30 Lymph % (Auto) 16.5 % (15.0-45.0) 06/08/17 16:30 [place] % (Auto) 9.0 % (4.5-13.0) 06/08/17 16:30 Eos % (Auto) 1.2 % (0.6-7.6) 06/08/17 16:30 Baso % (Auto) 0.4 % (0.3-1.7) 06/08/17 16:30 Nucleat RBC Rel Count 0.0 % (0.0-0.2) 06/08/17 16:30 Absolute Neuts (auto) 5.61 10^3/uL (1.70-6.50) 06/08/17 16:30 Absolute Lymphs (auto) 1.28 10^3/uL (1.00-3.00) 06/08/17 16:30 Absolute Monos (auto) 0.70 10^3/uL (0.30-0.80) 06/08/17 16:30 Absolute Eos (auto) 0.09 10^3/uL (0.03-0.40) 06/08/17 16:30 Absolute Basos (auto) 0.03 10^3/uL (0.02-0.10) 06/08/17 16:30 Absolute Nucleated RBC 0.00 10^3/uL (0-0.01) 06/08/17 16:30 Immature Gran % 0.4 % (0.0-1.1) 06/08/17 16:30 Immature Gran # 0.03 10^3/uL (0.00-0.10) 06/08/17 16:30 Sodium 140 mEq/L (134-144) 06/08/17 16:30 Potassium 3.9 mEq/L (3.5-5.2) 06/08/17 16:30 Chloride 101 mEq/L (97-110) 06/08/17 16:30 Carbon Dioxide 27 mEq/l (22-31) 06/08/17 16:30 Anion Gap 12 mEq/L (8-16) 06/08/17 16:30 BUN 30 mg/dL (7-23) H 06/08/17 16:30 Creatinine 2.0 mg/dL (0.7-1.3) H 06/08/17 16:30 Estimated GFR 32 06/08/17 16:30 Glucose 102 mg/dL (70-100) H 06/08/17 16:30 Calcium 9.5 mg/dL (8.5-10.4) 06/08/17 16:30 Total Bilirubin 0.3 mg/dL (0.1-1.4) 06/08/17 16:30 Conjugated Bilirubin 0.0 mg/dL (0.0-0.5) 06/08/17 16:30 Unconjugated Bilirubin 0.3 mg/dL (0.0-1.1) 06/08/17 16:30 AST 25 IU/L (17-59) 06/08/17 16:30 ALT 31 IU/L (21-72) 06/08/17 16:30 Alkaline Phosphatase 51 IU/L (38-126) 06/08/17 16:30 Troponin I 0.026 ng/mL (0.000-0.034) 06/08/17 16:30 NT-Pro-B Natriuret Pep 1020 pg/mL (0-450) H 06/08/17 16:30 Total Protein 6.4 g/dL (6.3-8.2) 06/08/17 16:30 Albumin 3.7 g/dL (3.5-5.0) 06/08/17 16:30 Lipase 73 IU/L (23-300) 06/08/17 16:30 Visualized and Interpreted Chest x-ray results: Yes Chest X-Ray results: other (bibasilar atelectasis) Visualized and Interpreted EKG results: Yes EKG Interpretation: Positive for: normal sinsus rhythm Assessment & Plan Assessment: Atrial fibrillation (Acute) 87 yo M with PMH of CAD, prostate cancer and paroxysmal a fib admitted with palpitations presumably 2/2 recurrent a fib # paroxysmal a fib: patient with an episode today and another last week that sounds c/w his prior bouts of a fib w/rvr, both times quite symptomatic and ending up in ER. He is currently in SR with a rate in 70s. In the past was on amiodarone to avoid recurrence, but currently off. Followed by cardiology and had an appointment tomorrow, he will be seen by them in house. He will be monitored on tele, serial trops ordered, TSH pending. Had last echo in 09/2016 and w/o any signs of CHF will hold off on repeating for now pending cardiology recs. Will hold off on full AC for now given brief episode. 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 Old records reviewed and summarized as above. Care plan reviewed with ER doctor including plans for cardiology consult.
[2017-06-08] MEDS ORDERED: FLUTICASONE NASAL 120 SPRAYS/16 GM MDI EACHNARE PRN (19:33)
[2017-06-08] MEDS ORDERED: SODIUM CL NASAL 45 ML BTL EACHNARE PRN (20:15)
[2017-06-08] MEDS: HEPARIN 5,000 UNIT/0.5 ML SYR SC SCH (20:52)
[2017-06-08] MEDS ORDERED: ENOXAPARIN 60 MG/0.6 ML SYR SC SCH (21:00)
[2017-06-09 00:37] LABS: TROPONIN I 0.045 ng/mL (0.000-0.034)
[2017-06-09] MEDS: HEPARIN 5,000 UNIT/0.5 ML SYR SC SCH (07:18)
--- NOTE | 2017-06-09 08:57 | CPEKG ---
Heart Rate: 92 RR Interval: 652 P-R Interval: 168 QRSD Interval: 82 QT Interval: 368 QTC Interval: 456 P [place]: 38 QRS [place]: 53 T Wave [place]: -41 EKG Severity - BORDERLINE ECG - EKG Impression: SINUS RHYTHM EKG Impression: BORDERLINE T ABNORMALITIES, INFERIOR LEADS Electronically Signed By: Chuck Vu 09-Jun-2017 22:06:02
[2017-06-09] MEDS ORDERED: ASPIRIN 81 MG CHEWABLE TAB PO SCH (09:00)
[2017-06-09] MEDS ORDERED: NON-FORMULARY NEW DRUG (Omeprazole [Prilosec 20 Mg] 20 MG) PO SCH (09:00)
[2017-06-09] MEDS ORDERED: ROSUVASTATIN CALCIUM 10 MG TAB PO SCH (09:00)
[2017-06-09] MEDS ORDERED: PANTOPRAZOLE SODIUM 40 MG TAB PO SCH (09:00)
[2017-06-09 09:12] VITALS: BP 114/74; PULSE 81; RESP 17; TEMP 97.9; O2SAT 93
[2017-06-09] MEDS ORDERED: AMIODARONE HCL 200 MG TAB PO SCH (11:00)
--- NOTE | 2017-06-09 11:05 | GCON ---
[f rep st] CONSULTATION CARDIOLOGY CONSULTATION DATE OF CONSULTATION: 06/09/2017 CHIEF COMPLAINT: Palpitations. HISTORY OF PRESENT ILLNESS: This is an 87-year-old gentleman who is usually followed by Dr. Horace nguyen n our office. He has a known history of paroxysmal atrial fibrillation. In the past, he had been on amiodarone but this was stopped just more of a consolidation of drug aspect as compared to any side effects or problems. He is undergoing treatment for prostate cancer and lymphoma. Apparently last w [place] while in [place], he had an episode of palpitations, which were similar to his atrial fibrillat ion and once again, converted spontaneously. Yesterday, he was in his usual state of health around 2 p.m. when his heart began palpating, he called 9--1. He converted and has been in normal sinus rhy thm overnight. His creatinine is 2.0 to stable. He has a chronic low level anemia with hemoglobin 9 . His troponins are flat. His EKG showed no ischemic EKG changes or other problems. He had an echo cardiogram in our office and a nuclear treadmill in September of this year that showed no significant abn ormalities. He feels well at this time. I had a long discussion with him and also talked to his son and Dr. Vu. We will recommend re-adding amiodarone 200 mg p.o. daily. He will follow up with Eduardo Vu in 7 to 10 days or as needed. All questions were given. ALLERGIES: No known allergies. HOME MEDICATIONS: See reconciliation form. He is on aspirin and Lipitor for cardiac medications. REVIEW OF SYSTEMS: A 10-point review of system is negative for fever, chills, nausea, vomiting, GI, complaints, shortness of breath. The only positive was his palpitations as described in the HPI. LABORATORY DATA: Hemoglobin 9, which is chronic, BNP 1020, troponins 0.02 to 0.04. EKG shows normal sinus rhythm without ischemia. EXAMINATION: VITAL SIGNS: Blood pressure was 114/74. He is afebrile. HEENT: Mouth and oropharynx are moist. NECK: Supple. LUNGS: Clear to auscultation. CARDIOVASCULAR: Regular rate and rhythm with a soft systolic murmur. ABDOMEN: Normoactive bowel sounds. MUSCULOSKELETAL: Showed no signs of clubbing or edema. Pulses were strong in his feet and hands. ASSESSMENT: 1. Palpitations, probably paroxysmal atrial fibrillation at least given his past history with sponta neous conversion. At this point, he had been on amiodarone in the past as discussed in the history o f present illness. Will restart amiodarone 200 mg p.o. daily. He will follow up with Dr. Vu in 7 to 10 days or call us as needed. He had been on this drug without obvious side effects in the past by reports. 2. Patient had a hemodynamically stable exam with normal sinus rhythm. No ischemic EKG changes. [place] d nonremarkable echoes and nuclear stress test of [facility] in the spring of this year. No furth er testing is necessary at this time. 3. Chronic anemia. Patient is on aspirin. Coumadin has been withheld. Given this, he can further discuss with Dr. Vu. 4. Chronic renal insufficiency. Creatinine 2.0, which may be influencing his troponin levels as wel l. 5. History of prostate cancer, undergoing current therapy. 6. History of lymphoma with current therapy as well, both with [facility]. Patient is co mfortable, stable. He can be discharged back to his [facility] today with followup with Dr. Vu in 7 to 10 days. Questions answered. I did speak to his son, as well. /[id number]/MODL
--- NOTE | 2017-06-09 15:31 | ASDISCHSUM ---
Discharge Information Plan Status:Home with No Needs Medically Cleared to Leave: Discharge Date:06/09/2017 12:20 PM CM D/C Disposition:Home, Routine, Self-Care ADT D/C Disposition:Home, Routine, Self-Care Projected Discharge Date:06/09/2017 12:20 PM Transportation at D/C:Friend Discharge Delay Reason: Follow-Up Date:06/09/2017 12:20 PM Discharge Slot: Final Diagnosis: Placement Information Patient Contact Information Contact Name:JOHANN Relationship:Gilberto Address: Work Phone: City:[place] Alternate Phone: State/[place] Code:[place] Email: Financial Information Financial Class:MC Primary Plan Desc:MEDICARE OUTPATIENT Primary Plan Number:[id number] Secondary Plan Desc:[employer]/MDR SUPPLEMENT Secondary Plan Number:[id number] Assessment Information Intervention Information
--- NOTE | 2017-06-09 18:48 | PDDCSUM ---
Discharge Summary Discharge Summary: DISCHARGE SUMMARY FOLLOW-UP ITEMS: Assess atrial fibrillation burden in the outpatient setting DATE OF ADMISSION: 06/08/2017 DATE OF DISCHARGE: 06/09/2017 DISCHARGE DIAGNOSES: 1. Paroxysmal atrial fibrillation with acute rapid ventricular response 2. Acute atelectasis 3. Chronic kidney disease stage 3 4. Prostate cancer 5. Chronic coronary artery disease CONSULTATIONS: Cardiology PROCEDURES / IMAGING: Chest x-ray demonstrating atelectasis CHIEF COMPLAINT: Acute palpitations SUBJECTIVE: No palpitations at time of discharge PHYSICAL EXAM ON DISCHARGE: Systolic blood pressure 100, HR 70, afebrile overnight, satting well on room air , alert awake oriented x3, heart rhythm is regular, with a normal rate, lungs are clear to auscultation bilaterally LABS ON DISCHARGE: Troponin 0.04, BNP 1000, creatinine 2.0 HOSPITAL COURSE BY PROBLEM: The patient presented with acute palpitations secondary to paroxysmal atrial fibrillation with acute rapid ventricular response. The patient's atrial fibrillation resolved without intervention. This is the 2nd time he has experienced symptomatic rapid ventricular response in the recent past. He was seen by Cardiology, and we determined that the patient's amiodarone had recently been discontinued, the patient had not experienced any untoward side effects. Consequently, he was re-initiated on amiodarone 200 mg daily, with outpatient reassessment by Dr. Chuck Vu. The patient was otherwise continued on all of his home medications. His marginal elevation in troponin level was most likely secondary to his acute rapid ventricular response and remained elevated in the setting of chronic kidney disease. DISCHARGE MEDICATIONS: Please see official discharge medication reconciliation sheet in chart , amiodarone 200 mg daily, continue other medications. DISCHARGE INSTRUCTIONS: The patient will follow up with Dr. Chuck Vu, as well as his outpatient oncology and Pulmonary providers.
== END 2017-06-09 12:20 | disposition home or self-care (01) ==
LOC: F2W 18:25
PROVIDERS: ADMIT Internal Medicine; ATTEND Internal Medicine
DX: I48.0 Paroxysmal atrial fibrillation (principal); J98.11 Atelectasis; N18.3 Chronic kidney disease, stage 3 (moderate); C61 Malignant neoplasm of prostate; I25.10 Atherosclerotic heart disease of native coronary artery without angina pectoris; K21.9 Gastro-esophageal reflux disease without esophagitis; G47.33 Obstructive sleep apnea (adult) (pediatric); Z95.1 Presence of aortocoronary bypass graft
CPT/HCPCS: 71020; 93005; G0378; J1650

== ENCOUNTER 2017-07-19 01:25 | Emergency (ER) | payer OTHER, MEDICARE ==
[2017-07-19] MEDS ORDERED: OSELTAMIVIR PHOSPHATE 75 MG CAP PO ONE (02:39)
--- NOTE | 2017-07-19 02:39 | EDPHY ---
H & P Stated Complaint: Cough Time Seen by Provider: 07/19/17 01:32 HPI/ROS: HPI The patient presents with cough which has been present for the last 2 days which is getting progressively worse. It became much worse tonight when he was trying to sleep. It is associated with rhinorrhea and a fever as high as 102 F. He talked to his doctor and was prescribed amoxicillin for presumed pneumonia or bronchitis yesterday. He did receive a flu shot this year. He says many people at [facility] where he resides are also sick. Uses a CPAP at night for the last several months. He is on prednisone 5 mg daily. He does not have any chest pain or shortness of breath. REVIEW OF SYSTEMS Constitutional: Positive for fever Eyes: No discharge. ENT: No sore throat. Cardiovascular: No chest pain, no palpitations. Respiratory: Positive for cough, no shortness of breath. Gastrointestinal: No abdominal pain, no vomiting. Genitourinary: No hematuria. Musculoskeletal: No back pain. Skin: No rashes. Neurological: No headache. PMHx: Prostate cancer, obstructive sleep apnea with CPAP, atrial fibrillation Soc Hx: Lives at [facility] PHYSICAL General Appearance: Alert, no distress Eyes: Pupils equal and round no pallor or injection ENT, Mouth: Mucous membranes moist Respiratory: There are no retractions, lungs are clear to auscultation Cardiovascular: Regular rate and rhythm Gastrointestinal: Abdomen is soft and non-tender, no masses, bowel sounds normal Neurological: A&O, moves all extremities Skin: Warm and dry, no rashes Musculoskeletal: Neck is supple non tender Extremities: symmetrical, full range of motion Psychiatric: Patient is oriented X 3, there is no agitation Source: Patient, EMS Exam Limitations: No limitations - Personal History Current Tetanus Diphtheria and Acellular Pertussis (TDAP): Yes Tetanus Vaccine Date: <10 years - Medical/Surgical History Hx Asthma: Yes Hx Chronic Respiratory Disease: No Hx Diabetes: No Hx Cardiac Disease: Yes Hx Renal Disease: No Hx Cirrhosis: No Hx Alcoholism: No Hx HIV/AIDS: No Hx Splenectomy or Spleen Trauma: No Other PMH: prostate ca, CABG 1992,[place], admission a fib [facility] 2016, [place] - Social History Smoking Status: Never smoked Constitutional: Initial Vital Signs Temperature (C) 36.7 C 07/19/17 01:31 Heart Rate 62 07/19/17 01:31 Respiratory Rate 16 07/19/17 01:31 Blood Pressure 135/62 H 07/19/17 01:31 O2 Sat (%) 95 07/19/17 01:31 O2 Delivery Mode Nasal Cannula O2 (L/minute) 2 Allergies/Adverse Reactions: meperidine HCl [From Demerol] Allergy (Verified 07/19/17 01:29) Home Medications: Medication Instructions Recorded Aspirin [Aspirin 81mg (*)] 81 mg PO DAILY 10/19/16 Fluticasone Nasal [Flonase Nasal 1 sprays NASAL DAILY PRN 10/19/16 [place]] Omeprazole [Prilosec 20 mg] 20 mg PO DAILY 10/19/16 Rosuvastatin Calcium [Crestor] 10 mg PO DAILY 10/19/16 Amiodarone HCl [Pacerone (*)] 200 mg PO DAILY #30 tab 06/09/17 Amoxicillin 07/19/17 Guaifenesin 07/19/17 Oseltamivir Phosphate [Tamiflu 75 75 mg PO BID #10 cap 07/19/17 mg (*)] Tylenol 07/19/17 Medical Decision Making - Diagnostics Imaging Results: Chest x-ray two view demonstrates no infiltrate, interpreted by me, radiology interpretation is pending. Differential Diagnosis: 87-year-old male brought in by ambulance from [facility], past medical history significant for atrial fibrillation, obstructive sleep apnea, prostate cancer presents with cough, fever, rhinorrhea for the last is 2 days. On arrival, he has normal vital signs, is well-appearing, lungs sound clear. He does have some clear rhinorrhea. Differential diagnosis includes influenza, pneumonia, upper respiratory tract infection. In the emergency department, chest x-ray was obtained and was unremarkable. Rapid flu and RSV testing was positive for flu a. The patient was given a dose of Tamiflu. He also was given a DuoNeb with some improvement in his symptoms. Vital signs remained normal. There are no signs of sepsis or concomitant pneumonia. As he feels well enough to go home. I will discharge him with Tamiflu, instructions for continued cough medication and albuterol inhaler as needed. - Data Points Laboratory Results: 07/19/17 01:40 Nasal Influenza A PCR FLU A DETECTED (NEGATIVE) Nasal Influenza B PCR NEGATIVE FOR FLU B (NEGATIVE) RSV (PCR) NEGATIVE FOR RSV (NEGATIVE) Medications Given: Discontinued Medications Albuterol/Ipratropium (Duoneb) 3 ml IH EDNOW ONE Stop: 07/19/17 02:48 Last Admin: 07/19/17 02:49 Dose: 3 ml Oseltamivir Phosphate (Tamiflu) 75 mg PO EDNOW ONE Stop: 07/19/17 02:40 Last Admin: 07/19/17 03:02 Dose: 75 mg Departure - Departure Disposition: Home, Routine, Self-Care Clinical Impression: Influenza A Condition: Good Instructions: Influenza (ED) Additional Instructions: Please return to the emergency department if your worse in any way. You should follow up with your primary care doctor in 1-2 days. Referrals: Chuck Phelan MD [Primary Care Provider] - As per Instructions Prescriptions: Oseltamivir Phosphate [Tamiflu 75 mg (*)] 75 mg PO BID #10 cap
[2017-07-19] MEDS ORDERED: ALBUTEROL 3 ML DEYVIAL ONE (02:47)
[2017-07-19] MEDS ORDERED: IPRATROPIUM/ALBUTEROL 3 ML DEYVIAL IH ONE (02:47)
[2017-07-19 04:07] VITALS: BP 104/69; PULSE 62; RESP 18; TEMP 98.4; O2SAT 93
== END 2017-07-19 04:07 | disposition home or self-care (01) ==
LOC: EDUNIT#
DX: J10.1 Influenza due to other identified influenza virus with other respiratory manifestations (principal); J45.909 Unspecified asthma, uncomplicated; Z85.46 Personal history of malignant neoplasm of prostate; Z95.1 Presence of aortocoronary bypass graft; Z79.82 Long term (current) use of aspirin

== ENCOUNTER 2017-08-14 11:21 | Day surgery (SDC) | payer OTHER, MEDICARE ==
--- NOTE | 2017-08-14 10:45 | GHP ---
[f rep st] PREOP HISTORY AND PHYSICAL DATE OF ADMISSION: 08/14/2017 ADMISSION DIAGNOSIS: Hydronephrosis secondary to prostate cancer. HISTORY OF PRESENT ILLNESS: This is an 87-year-old gentleman who has had the left hydronephrosis for stent change. He has had this for some time and this is 1 of multiple changes. He had his original ly percutaneous nephrostomy tube placed in 05/2015 and he has had metastatic prostate cancer that see med to be contributing to this problem. He is admitted for stent change. MEDICATIONS: On admission include aspirin, Flonase, Zometa, trazodone, Lupron. PAST SURGICAL HISTORY: Prostate and cardiac bypass. PAST MEDICAL HISTORY: Metastatic prostate cancer, hypercholesterolemia, cardiac atherosclerotic vasc ular disease. ALLERGIES: Demerol. FAMILY HISTORY: Positive for heart disease and prostate cancer. SOCIAL HISTORY: Mild amount of alcohol. , nonsmoker. 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 PHYSICAL EXAMINATION: VITAL SIGNS: Stable. CHEST: Clear. HEART: Regular rate and rhythm. ABDOME N: Normal. No organomegaly, rebound or guarding. LOWER EXTREMITIES: Normal at the present time. He is admitted for the above procedure. /[id number]/MODL
[2017-08-14] MEDS ORDERED: LR 1,000 ML IV ONE (11:29)
[2017-08-14] MEDS ORDERED: IOPAMIDOL (ISOVUE-M 300) 15 ML VIAL ONE ×2 (11:51→11:52)
[2017-08-14] MEDS ORDERED: LIDOCAINE 2% JELLY 20 ML (UROJECT) ONE (11:51)
--- NOTE | 2017-08-14 12:59 | PDANEPAE ---
ANE History of Present Illness STENT EXCHANGE FOLLOWING PROSTATE CA/OBSTRUCTION ANE Past Medical History - Cardiovascular History Hx Hypertension: Yes Hx Arrhythmias: Yes Hx Chest Pain: No Hx Coronary Artery / Peripheral Vascular Disease: Yes Hx CHF / Valvular Disease: No Hx Palpitations: No Cardiovascular History Comment: CABG X 4 1992. States had history of HTN but not the last 4 years due to diet/exercise, 4 stents 1992 - Pulmonary History Hx COPD: No Hx Asthma/Reactive Airway Disease: Yes Hx Recent Upper Respiratory Infection: No Hx Oxygen in Use at Home: Yes Hx Sleep Apnea: Yes Sleep Apnea Screening Result - Last Documented: Positive Pulmonary History Comment: SLEEP APNEA 3L AT NIGHT - Neurologic History Hx Cerebrovascular Accident: No Hx Seizures: No Hx Dementia: No - Endocrine History Hx Diabetes: No - Renal History Hx Renal Disorders: Yes Renal History Comment: hx of LEFT URETER OBSTRUCTION 10/12/15 with stent change with brooks. prostate cancer - Liver History Hx Hepatic Disorders: No - Neurological & Psychiatric Hx Hx Neurological and Psychiatric Disorders: No - Cancer History Hx Cancer: Yes Cancer History Comment: PROSTATE CANCER - Congenital Disorder History Hx Congenital Disorders: No - GI History Hx Gastrointestinal Disorders: Yes Gastrointestinal History Comment: GASTRIC REFLUX - Other Health History Other Health History: RIGHT KNEE INJECTIONS. wears bilateral hearing aides. glasses. skin tags - Chronic Pain History Chronic Pain: No - Surgical History Prior Surgeries: 10/12/15 ureteral stent change with Brooks. CABG x4 1995. PROSTATECTOMY 1990 (CANCER) ANE Review of Systems Review of Systems: - Exercise capacity Exercise capacity: <4 METS METS (RN): 3 METS ANE Patient History - Allergies Allergies/Adverse Reactions: meperidine HCl [From Demerol] Allergy (Verified 07/19/17 01:29) - Home Medications Home Medications: Aspirin [Aspirin 81mg (*)] 10/19/16 [Last Taken 06/08/17] Fluticasone Nasal [Flonase Nasal [place]] 10/19/16 [Last Taken 03/03/17] Rosuvastatin Calcium [Crestor] 10/19/16 [Last Taken 06/08/17] Guaifenesin 07/19/17 [Last Taken Unknown] Tylenol 07/19/17 [Last Taken Unknown] Amiodarone HCl [Pacerone (*)] 08/12/17 [Last Taken Unknown] Omeprazole 08/12/17 [Last Taken Unknown] - NPO status NPO Status: no food or drink >8 hours NPO Since - Liquids (Date): 08/14/17 NPO Since - Liquids (Time): 20:00 NPO Since - Solids (Date): 08/14/17 NPO Since - Solids (Time): 20:00 - Anes Hx Anes Hx: no prior problems - Smoking Hx Smoking Status: Never smoked - Family Anes Hx Family Hx Anesthesia Complications: NONE ANE Labs/Vital Signs - Vital Signs Vital Signs: reviewed preoperatively; see RN documention for details Blood Pressure: 121/66 Heart Rate: 57 Respiratory Rate: 17 Height: 160.02 cm Weight: 61.235 kg ANE Physical Exam - Airway Mallampati Score: Class 2 - Pulmonary Pulmonary: no respiratory distress - Cardiovascular Cardiovascular: regular rate and rhythym - ASA Status ASA Status: III ANE Anesthesia Plan Anesthesia Plan: GA w LMA
[2017-08-14] MEDS ORDERED: ceFAZolin 2 GM/SWFI 20 ML SYR IVP ONE (13:08)
[2017-08-14] MEDS ORDERED: ceFAZolin 2 GM/SWFI 2 GM/20 ML SYR IVP ONE (13:09)
[2017-08-14] MEDS ORDERED: LIDOCAINE 2% 5 ML SDV ONE (13:15)
[2017-08-14] MEDS ORDERED: PROPOFOL 200 MG/20 ML VIAL ONE (13:15)
[2017-08-14] MEDS ORDERED: fentaNYL 100 MCG/2 ML INJ ONE (13:15)
[2017-08-14] MEDS ORDERED: ONDANSETRON 4 MG/2 ML VIAL ONE (13:25)
--- NOTE | 2017-08-14 13:56 | POSTOPPROG ---
Post Op Note Date of Operation: 08/14/17 Surgeon: Lazaro Conklin Anesthesia: LMA Pre-op Diagnosis: hydronephrosis Procedure: stent / ureteroscopy Inf/Abcess present in the surg proc area at time of surgery?: No EBL: Minimal Drains: Other (CARLOS drain) Specimen(s): none--dictated op note
[2017-08-14] MEDS ORDERED: LABETALOL HCL 5 MG/ML 20 ML MDV IVP PRN (14:00)
[2017-08-14] MEDS ORDERED: ONDANSETRON 4 MG/2 ML VIAL IVP PRN (14:00)
[2017-08-14] MEDS ORDERED: fentaNYL 100 MCG/2 ML INJ IVP PRN (14:00)
[2017-08-14] MEDS ORDERED: NALOXONE HCL 0.4 MG/ML INJ IVP PRN ×2 (14:00)
[2017-08-14 16:25] VITALS: BP 100/53; O2SAT 95
[2017-08-14 17:24] VITALS: PULSE 58; RESP 17; TEMP 208.9
--- NOTE | 2017-08-14 20:33 | GOP ---
[f rep st] OPERATIVE REPORT DATE OF OPERATION: 08/14/2017 SURGEON: Lazaro Conklin MD PREOPERATIVE DIAGNOSIS: Left hydronephrosis secondary to prostate cancer. POSTOPERATIVE DIAGNOSIS: Left hydronephrosis secondary to prostate cancer. PROCEDURE PERFORMED: 1. Cystoscopy. 2. Retrograde ureteral pyelogram with stent change and then ureteroscopy. FINDINGS: DESCRIPTION OF PROCEDURE: The gentleman underwent general anesthesia, prepped and draped in normal s terile fashion. After appropriate time-out, I went into the bladder with the cystoscope and grasped the ureteral stent from the left side and that was brought out to the meatus of the urethra. I passe d a guidewire up the stent and removed the stent and then replaced it with a 7-[place] multi-length, c urled in the renal pelvis and it appeared to curl in the bladder. On endoscopy of the bladder the st ent had migrated into the ureter. At that point, with the semi-rigid scope I was able to go up into the ureter, grasp the stent, pull it out, so it curled in the bladder. At the end of the procedure, there was no tumor, stones or foreign bodies in the bladder other than t he stent and Uro-Jet placed in the urethra. He will be discharged home to have stent change in appro ximately 6 months. /[id number]/MODL
== END 2017-08-14 17:04 | disposition home or self-care (01) ==
LOC: FSGY 11:21
PROVIDERS: ATTEND Specialist
PROC: 0T778DZ Dilation of Left Ureter with Intraluminal Device, Via Natural or Artificial Opening Endoscopic (ICD-10-PCS; principal; 2017-08-14 13:00)
PROC: BT171ZZ Fluoroscopy of Left Ureter using Low Osmolar Contrast (ICD-10-PCS; principal; 2017-08-14 13:00)
PROC: 0TP98DZ Removal of Intraluminal Device from Ureter, Via Natural or Artificial Opening Endoscopic (ICD-10-PCS; principal; 2017-08-14 13:00)
DX: N13.39 Other hydronephrosis (principal); J45.909 Unspecified asthma, uncomplicated; G47.33 Obstructive sleep apnea (adult) (pediatric); I25.2 Old myocardial infarction; E78.5 Hyperlipidemia, unspecified; I25.10 Atherosclerotic heart disease of native coronary artery without angina pectoris; Z85.46 Personal history of malignant neoplasm of prostate; Z82.49 Family history of ischemic heart disease and other diseases of the circulatory system; Z95.1 Presence of aortocoronary bypass graft; Z95.5 Presence of coronary angioplasty implant and graft
CPT/HCPCS: 52332; 76001; C1769; C2625; J0690; J2405; J2704; J3010; Q9967